=== PATIENT | male | born 1975 | race African-American/Black ===

== ENCOUNTER 2018-08-12 13:21 | Inpatient (IN) | payer OTHER ==
[~2018-08-12] VITALS: Ht 167.6 cm; Wt 69.4 kg
[2018-08-12 14:00] VITALS: BP 105/66
[2018-08-12 15:00] VITALS: BP 125/84
[2018-08-12 16:00] VITALS: BP 125/84
[2018-08-12] MEDS ORDERED: ACETAMINOPHEN ES 500 MG TABLET PO PRN (16:00)
[2018-08-12] MEDS ORDERED: IBUPROFEN 200 MG TABLET PO PRN (16:00)
--- NOTE | 2018-08-12 16:15 | NUR ---
MS RN ADMITTING NOTES RECEIVED PT AMBULATORY WITH 1 PERSON ASSIST/EMT. A/O X2-3. PT STATED CAME FROM HOME, ADMITTED BY DR PERALES. ORDERS PLACED AND MED LIST FAXED TO PHARMACY. NO IV ACCESS. PT FOR CLINICAL TRIAL, WITH DX OF SCHIZOPHRENIA AND ACUTE EXACERBATION OF PSYCHOSIS. LATVIAN SPEAKING. PT ABLE TO MAKE NEEDS KNOWN. PT HAS NO QUESTIONS AND CONCERNS AT THIS MOMENT. PT DENIES PAIN. TOLERATING RA, WITH NO ACUTE RESPIRATORY DISTRESS, O2 SATURATION OF 98%. PT'S BED KEPT IN LOWEST, LOCKED POSITION WITH SR X2. WILL CONTINUE PLAN OF CARE.
--- NOTE | 2018-08-12 16:20 | NUR ---
MS RN NOTES RN TO ASSESS SKIN. PT REFUSED AND CLAIMING HE HAS NO WOUNDS OR ANY SKIN ISSUES. EXPLAINED PER FACILITY PROTOCOL. PT STILL REFUSED. WILL ENDORSE TO INCOMING NURSE.
--- NOTE | 2018-08-12 19:28 | NUR ---
MS RN CLOSING NOTES PT RESTING IN BED, INTERMITTENTLY DOZING OFF. A/O X2-3. PT ABLE TO MAKE NEEDS KNOWN. PT DENIES PAIN. TOLERATING RA, WITH NO ACUTE RESPIRATORY DISTRESS, O2 SATURATION OF 98%. ALL NEEDS ATTENDED. PT'S BED KEPT IN LOWEST, LOCKED POSITION WITH SR X2. WILL ENDORSE TO ASSOCIATE DATA SCIENTIST NURSE.
[2018-08-12 20:00] VITALS: BP 108/65
--- NOTE | 2018-08-12 20:00 | NUR ---
RN NOTES PATIENT IN BED, ALERT AND ORIENTED X4, NO SOB, CALM, DENIES ANY HALLUCINATIONS, GOOD APPETITE. RECEIVED FROM PATIENT HOME MEDICATIONS, GIVEN TO PHARMACY. PATIENT IS USING HOME MEDS.
[2018-08-12] MEDS: SEROQUEL 50 MG PO SCH (21:08)
[2018-08-12 22:00] VITALS: BP 108/65
--- NOTE | 2018-08-13 06:22 | NUR ---
RN NOTES PATIENT IS ALERT AND ORIENTED, CLINICAL TRIAL, DENIES HALLUCINATIONS, SLEPT FOR 8 HOURS, CONTINUE HOME MEDS
--- NOTE | 2018-08-13 07:37 | NUR ---
MS RN OPENING NOTES RECEIVED PT LAYING IN BED RESTING COMFORTABLY. PT IS EASILY AROUSABLE. PT IS A/O X4, AFEBRILE. RESPIRATIONS ARE EVEN AND UNLABORED, NOT IN ANY ACUTE DISTRESS NOTED. PT DENIES ANY PAIN AT THIS TIME, NO C/O SOB, N/V. NO IV ACCESS. INSTRUCTED PT TO USE CALL LIGHT WHEN ASSISTANCE IS NEEDED, CALL LIGHT IS LEFT WITHIN REACH. WILL MONITOR THROUGHOUT SHIFT FOR CONTINUITY OF CARE.
[2018-08-13 08:00] VITALS: BP 115/52
[2018-08-13] MEDS: BENAZEPRIL 40 MG PO SCH (08:14)
[2018-08-13] MEDS: SEROQUEL 50 MG PO SCH ×2 (08:14→16:38)
[2018-08-13] MEDS: HCTZ PO SCH (08:14)
--- NOTE | 2018-08-13 13:31 | NUR ---
MS RN NOTES-- PT IS NOT IN ANY APPARENT DISTRESS NOTED. PT ABLE TO MAKE NEEDS KNOWN. NEEDS MET AND RENDERED. WILL CONTINUE TO MONITOR.
[2018-08-13 16:00] VITALS: BP 137/95
[2018-08-13] MEDS ORDERED: BACI/NEOM/POLY B OINT PKT 1 UDPKT PACKET TP SCH (17:00)
[2018-08-13] MEDS: NEOMY SULF/BACITRAC ZN/POLY 15 GM TUBE TP SCH (17:53)
--- NOTE | 2018-08-13 18:21 | NUR ---
MS RN CLOSING NOTES ALL DUE MEDS GIVEN, NEEDS MET AND RENDERED. PT IS A/O X4, AFEBRILE. RESPIRATIONS ARE EVEN AND UNLABORED, NOT IN ANY ACUTE DISTRESS NOTED. PT DENIES ANY PAIN, NO C/O SOB, N/V. NO IV ACCESS. SAFETY MEASURES ARE IN PLACE. REMINDED PT TO USE CALL LIGHT WHEN ASSISTANCE IS NEEDED, CALL LIGHT IS LEFT WITHIN REACH. WILL ENDORSE TO NEXT SHIFT FOR CONTINUITY OF CARE.
--- NOTE | 2018-08-13 19:52 | NUR ---
RN OPENING NOTES RECEIVED PATIENT AWAKE RESTING COMFORTABLY IN BED. PATIENT IS A/O X 4. NO SIGNS OF RESPIRATORY DISTRESS. DENIES SHORTNESS OF BREATH. PATIENT DENIES PAIN AT THIS TIME. PATIENT DENIES DISCOMFORT. SAFETY PRECAUTIONS IMPLEMENTED. CALL LIGHT WITHIN REACH. WILL CONTINUE TO MONITOR THROUGHOUT MY SHIFT.
[2018-08-13 20:00] VITALS: BP 117/83
--- NOTE | 2018-08-14 06:36 | NUR ---
RN CLOSING NOTES PATIENT IS RESTING COMFORTABLY IN BED. NO SIGNS OF RESPIRATORY DISTRESS. NO SIGNS OF SHORTNESS OF BREATH. PATIENT HAS NO SIGNS OF PAIN OR DISCOMFORT AT THIS TIME. CALL LIGHT WITHIN REACH. WILL ENDORSE TO AM NURSE.
[2018-08-14 08:00] VITALS: BP 106/82
--- NOTE | 2018-08-14 08:00 | NUR ---
RN NOTES RECEIVED PATIENT IN THE BED. PATIENT ON CLINICAL TRIAL, STABLE, V/S TAKEN HELD BP MEDICATION. PATIENT REFUSED PAIN, REFUSED HEARING VOICES TODAY, REFUSED SI/HI AT THIS TIME. PATIENT AMBULATORY SELF CARE. NEEDS ATTENDED AND ANTICIPATED, CALL LIGHT WITHIN TO REACH. SAFETY PRECAUTION MAINTAINED ALL THE TIME.
[2018-08-14] MEDS: HCTZ PO SCH (09:00)
[2018-08-14] MEDS: BENAZEPRIL 40 MG PO SCH (09:00)
[2018-08-14] MEDS: NEOMY SULF/BACITRAC ZN/POLY 15 GM TUBE TP SCH ×2 (09:44→16:53)
[2018-08-14] MEDS: SEROQUEL 50 MG PO SCH ×2 (09:44→16:53)
--- NOTE | 2018-08-14 13:00 | NUR ---
RN NOTES PATIENT STABLE LYING IN THE BED, SAFETY PRECAUTION MAINTAINED ALL THE TIME.
[2018-08-14 16:00] VITALS: BP 152/78
[2018-08-14 17:47] VITALS: BP 126/83
--- NOTE | 2018-08-14 18:45 | NUR ---
RN NOTES TRANSFERRED PATIENT 2 -ND FLOOR ROOM 206 BED B. PATIENT STABLE, NO ACUTE RESPIRATORY DISTRESS, PATIENT REFUSED PAIN, AND REFUSED HEARING VOICES AT THIS TIME, AND ANXIETY. SCHEDULED MEDICATION ADMINISTERED, V/S STABLE. PATIENT AMBULATORY SELF CARE. REPORT GIVEN ELADIO LOVE FOR PLAN OF CARE.
--- NOTE | 2018-08-14 19:00 | NUR ---
RN MS OPENING NOTES RECEIVED PATIENT IN BED, AWAKE ALERT AND ORIENTED X 4, RESPIRATIONS EVEN AND UNLABORED WITH EQUAL RISE AND FALL OF CHEST, NO SOB PRESENT, DENIES ANY PAIN OR DISCOMFORT, DENIES ANY FEELING OF ANXIETY OR HEARING VOICES, PATIENT IS CALM AT THIS TIME, ABLE TO MAKE NEEDS KNOWN. NO IV ACCESS MD AWARE PATIENT IS HERE UNDER CLINICAL TRIAL, ORIENTED TO STAFF, CALL LIGHT AND ROOM, FLUIDS OFFERED AND GIVEN, ALL NEEDS ATTENDED AT THIS TIME, REMAINS COMFORTABLE WILL CONTINUE TO MONITOR AND ATTEND TO NEEDS.
[2018-08-14 20:00] VITALS: BP 131/97
--- NOTE | 2018-08-15 06:42 | NUR ---
RN MS CLOSING NOTES PATIENT IN BED, AWAKE ALERT AND ORIENTED X 4, RESPIRATIONS EVEN AND UNLABORED WITH EQUAL RISE AND FALL OF CHEST, NO SOB PRESENT, DENIES ANY PAIN OR DISCOMFORT, DENIES ANY FEELING OF ANXIETY OR HEARING VOICES THROUGHOUT NIGHT, SLEPT WEL, PATIENT IS CALM AT THIS TIME, ABLE TO MAKE NEEDS KNOWN NO EPISODES OF ANXIETY. NO IV ACCESS MD AWARE PATIENT IS HERE UNDER CLINICAL TRIAL, CALL LIGHT KEPT WITHIN REACH, FLUIDS OFFERED AND GIVEN, ALL NEEDS ATTENDED AT THIS TIME, REMAINS COMFORTABLE WILL CONTINUE TO MONITOR AND ATTEND TO NEEDS AND ENDORSE TO NEXT SHIFT.
--- NOTE | 2018-08-15 07:18 | NUR ---
MS RN OPENING NOTES RECEIVED PATIENT AWAKE AND SITTING ON CHAIR BY BEDSIDE. A/O X4. ABLE TO MAKE NEEDS KNOWN, DENIES PAIN OR DISCOMFORTS AT THIS TIME. PT ON CLINICAL TRIAL. ON ROOM AIR, RESPIRATIONS EVEN AND UNLABORED. NO IV ACCESS NOTED. SAFETY MEASURES IN PLACE. BED IN LOW LOCKED POSITION. CALL LIGHT WITHIN REACH. WILL CONTINUE TO MONITOR AND ATTEND TO NEEDS.
[2018-08-15] MEDS: HCTZ PO SCH (08:05)
[2018-08-15] MEDS: BENAZEPRIL 40 MG PO SCH (08:05)
[2018-08-15] MEDS: NEOMY SULF/BACITRAC ZN/POLY 15 GM TUBE TP SCH ×2 (08:07→16:18)
[2018-08-15 08:08] VITALS: BP 125/77
[2018-08-15 16:00] VITALS: BP 120/76
--- NOTE | 2018-08-15 18:26 | NUR ---
MS RN CLOSING NOTES PATIENT AWAKE AND SITTING ON HIS BED AT THIS TIME. A/O X4. ABLE TO MAKE NEEDS KNOWN AND AMBULATORY. DENIES HI/SI THROUGHOUT THE DAY. PT ON CLINICAL TRIAL. ON ROOM AIR, RESPIRATIONS EVEN AND UNLABORED. NO IV ACCESS NOTED. ALL SAFETY MEASURES IN PLACE. BED IN LOW LOCKED POSITION. CALL LIGHT WITHIN REACH. ALL NEEDS AND CARE ATTENDED WELL. WILL ENDORSE TO KIESELGUHR REGENERATOR OPERATOR NURSE FOR NEYDA..
--- NOTE | 2018-08-15 19:30 | NUR ---
RN PM Open Note Assignment and report recieved. patient seen in room sitting in chair. in no apparent distress. admitted for schizophrenia (clinical trial). states he has a history of paranoid schizophrenia states " I havent had any sympotoms for quite a long time." patient reinforced that this is a safe place. patient denies any hallucinations at this time. poc reviewed. pt verbalized understanding and reinforced to call if he needs anything or assistance.
[2018-08-15 20:00] VITALS: BP 127/80
[2018-08-15] MEDS: SEROQUEL 50 MG PO SCH (21:09)
[2018-08-15] MEDS ORDERED: SEROQUEL 50 MG PO SCH (22:00)
--- NOTE | 2018-08-16 06:42 | NUR ---
RN PM CLOSING NOTE. PATIENT AWAKE AND SITTING ON HIS BED AT THIS TIME. A/O X4. ABLE TO MAKE NEEDS KNOWN AND AMBULATORY. PATIENT REPORTS HE FEELS WELL RESTED. PT ON CLINICAL TRIAL. ON ROOM AIR, RESPIRATIONS EVEN AND UNLABORED. NO IV ACCESS. BED DOWN AND LOCKED PATIENT HAS ACCESS TO CALL LIGHT. PATIENT HAS PLANNED EYE APPOINTMENT THIS AFTERNOON. WILL ENDORSE TO DAY SHIFT NURSE FOR NEYDA.
--- NOTE | 2018-08-16 07:07 | NUR ---
MS RN OPENING NOTES RECEIVED PT AWAKE IN BED WATCHING TV. A/O X4. ABLE TO MAKE NEEDS KNOWN, DENIES PAIN OR DISCOMFORTS AT THIS TIME. DENIES SI/HI. PT ON CLINICAL TRIAL. ON ROOM AIR, RESPIRATIONS EVEN AND UNLABORED. NO IV ACCESS NOTED. SAFETY MEASURES IN PLACE. BED IN LOW LOCKED POSITION. CALL LIGHT WITHIN REACH. WILL CONTINUE TO MONITOR AND ATTEND TO NEEDS
[2018-08-16 08:00] VITALS: BP 114/62
[2018-08-16] MEDS: BENAZEPRIL 40 MG PO SCH (08:57)
[2018-08-16] MEDS: NEOMY SULF/BACITRAC ZN/POLY 15 GM TUBE TP SCH ×2 (08:57→16:09)
[2018-08-16] MEDS: LORAZEPAM 1 MG TABLET FOR AGITATION PO PRN (08:59)
--- NOTE | 2018-08-16 09:00 | NUR ---
RN NOTES PATIENT NOTED ANXIOUS AND REQUESTED IF HE CAN HAVE SOMETHING TO RELAX HIM. PRN ATIVAN 1 MG TAB PO ADMINISTERED AT 0859. WILL CONTINUE TO MONITOR PT.
[2018-08-16] MEDS: HCTZ PO SCH (09:56)
--- NOTE | 2018-08-16 13:41 | NUR ---
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
--- NOTE | 2018-08-16 15:38 | NUR ---
RN NOTES PATIENT RETURNED TO UNIT FROM OPHTHALMOLOGY APPOINTMENT, AMBULATORY AND ACCOMPANIED BY MILLI FROM DR PERALES OFFICE.
[2018-08-16 16:00] VITALS: BP 117/80
--- NOTE | 2018-08-16 18:37 | NUR ---
MS RN CLOSING NOTES PATIENT IN BED AWAKE AND WATCHING TV. A/O X4. ABLE TO MAKE NEEDS KNOWN AND AMBULATORY. DENIES HI/SI THROUGHOUT THE DAY. ENCOURAGED TO TAKE BREAKS TO GO OUT WITH STAFF AND NOT TO ISOLATE HIMSELF IN THE ROOM, HE VERBALIZED UNDERSTANDING. ON ROOM AIR, RESPIRATIONS EVEN AND UNLABORED. ALL SAFETY MEASURES IN PLACE. BED IN LOW LOCKED POSITION. CALL LIGHT WITHIN REACH. ALL NEEDS AND CARE ATTENDED WELL. WILL ENDORSE TO CARDIOLOGY TECHNICIAN NURSE FOR NEYDA..
--- NOTE | 2018-08-16 19:30 | NUR ---
RECEIVED PT IN BED AWAKE AN ALERT. BREATHING EVENLY. NO SOB. NAD ,SKIN WARM AND DRY, NO BEHAVIORAL ISSUES NOTED. CALM AND QUIET. NEEDS ATTENDED. CALL LIGHT WITHIN REACH, WILL CONT TO MONITOR,
[2018-08-16 20:00] VITALS: BP 124/76
[2018-08-16] MEDS: SEROQUEL 50 MG PO SCH (21:57)
--- NOTE | 2018-08-17 06:00 | NUR ---
RN CLOSING NOTE PATIENT RECENTLY BATHED WITH AID, DRESSINGS CHANGED PATIENT REPOSITIONED. SXN X3 ROSA WHITE THICK LIQUID SECRETION SMALL AMOUNT. PATIENT ON VENT AND CONTINOUS POX HR OF 104 SPO2 OF 100%. ALARMS ARE ON AND AUDIBLE. PATIENT ALERT AND ORIENTED X4. MRI FORM REVIEWED WITH PATIENT AND SIGNED VERBALLY WITH 2 WITNESS RN. BED DOWN LOCKED DOOR LEFT OPEN FOR PATIENT TO MAKE CLICKING SOUNDS WITH TONGUE IF SHE NEEDS ASSISTANCE.
--- NOTE | 2018-08-17 07:30 | NUR ---
MS RN RECEIVED ON BED, AWAKE,ALERT,ORIENTED X4,NOT IN ANY FORM OF DISTRESS, RESPIRATIONS EVEN AND UNLABORED,NO SOB NOTED, CLINICAL TRIAL PATIENT, WILL MONITOR .
--- NOTE | 2018-08-17 07:54 | NUR ---
PT REMAINED STABLE WITH NO ACUTE EVENT DURING THE NIGHT. REPORT GIVEN TO ELADIO DOWNING FOR NEYDA.
[2018-08-17 08:00] VITALS: BP 113/71
--- NOTE | 2018-08-17 09:00 | NUR ---
MS HENDRICKS BREAKFAST SERVED,DUE MEDS GIVEN,TOLERATED WELL.
[2018-08-17] MEDS: BENAZEPRIL 40 MG PO SCH (09:19)
[2018-08-17] MEDS: HCTZ PO SCH (09:19)
[2018-08-17] MEDS: NEOMY SULF/BACITRAC ZN/POLY 15 GM TUBE TP SCH ×2 (09:23→18:03)
[2018-08-17 16:00] VITALS: BP 105/68
--- NOTE | 2018-08-17 17:00 | NUR ---
MS RN WAS SEEN BY DR. PERALES,ALL NEEDS ATTENDED.
[2018-08-17] MEDS: LORAZEPAM 1 MG TABLET FOR AGITATION PO PRN (18:08)
[2018-08-17 20:00] VITALS: BP 112/72
[2018-08-17] MEDS ORDERED: NICOTINE PATCH (7MG) 7 MG PATCH.TD24 TD ONE (21:30)
--- NOTE | 2018-08-17 21:32 | NUR ---
RN MS NOTES PATIENT REQUESTED FOR NICOTINE PATCH PER REPORT. CALLED AND SPOKE TO DR. PERALES. NEW ORDER VERIFIED AND READ BACH FOR NICOTINE PATCH X 1 ONE TIME ONLY 7MG PATIENT MADE AWARE, NICOTINE PATCH PLACED TO LEFT UPPER ARM.
[2018-08-18] MEDS: ZOLPIDEM TARTRATE 10 MG TABLET PO PRN ×2 (01:45→21:55)
--- NOTE | 2018-08-18 01:45 | NUR ---
RN MS NOTES PATIENT STATING AND REQUESTING " CAN I HAVE SOMETHING FOR SLEEP " AMBIEN OFFERED AGREED PRN AMBIEN GIVEN ORDERED, WILL CONTINUE TO MONITOR FOR EFFECTIVENESS.
--- NOTE | 2018-08-18 07:00 | NUR ---
RN MS CLOSING NOTES PATIENT AWAKE ALERT AND ORIENTED X4, RESPIRATIONS EVEN AND UNLABORED WITH EQUAL RISE AND FALL OF CHEST, DENIES ANY PAIN OR DISCOMFORT, PATIENT APPEARS TO BE CALM, NO EPISODE OF ANXIETY AT THIS TIME ,NO SI OR HI, NO HALLUCINATIONS AT THIS TIME, PATIENT IS PLEASANT, CALL LIGHT KEPT WITHIN REACH,SAFETY PRECAUTIONS IN PLACE, ALL NEEDS ATTENDED AT THIS TIME WILL CONTINUE TO MONITOR AND ATTEND TO NEEDS.REMAINS CALM AND COMFORTABLE AT THIS TIME WILL ENDORSE TO NEXT SHIFT, PATIENT THROUGHOUT SHIFT NOTED WITH PERIODS OF LAYING AND BEING UP THROUGHOUT THE NIGHT, DESPITE AMBIEN GIVEN AND DIM LIGHTS AND DECREASED DISTRACTIONS.
--- NOTE | 2018-08-18 07:18 | NUR ---
RN NOTES STATES HAD 6 HOURS OF SLEEP
[2018-08-18 08:00] VITALS: BP 118/85
--- NOTE | 2018-08-18 08:00 | NUR ---
MS RN RECEIVED ON BED, AWAKE,ALERT,ORIENTED X4,NOT IN ANY FORM OF DISTRESS, RESPIRATION EVEN AND UNLABORED,NO SOB NOTED, LUNGS ARE CLEAR,ABDOMEN SOFT POSITIVE BOWEL SOUNDS, DENIES PAIN AT THIS TIME,ALL NEEDS ATTENDED.
[2018-08-18] MEDS: HCTZ PO SCH (08:50)
[2018-08-18] MEDS: BENAZEPRIL 40 MG PO SCH (08:50)
[2018-08-18] MEDS: NEOMY SULF/BACITRAC ZN/POLY 15 GM TUBE TP SCH ×2 (08:53→18:23)
--- NOTE | 2018-08-18 09:30 | NUR ---
MS HENDRICKS BREAKFAST SERVED,DUE MEDS GIVEN,TOLERATED WELL.
[2018-08-18] MEDS: MAG HYDROX/AL HYDROX/SIMETH 30 ML UDC PO PRN (12:05)
--- NOTE | 2018-08-18 15:46 | NUR ---
MS RN INSIDE ROOM,NO DISTRESS NOTED.
[2018-08-18 16:00] VITALS: BP 130/70
--- NOTE | 2018-08-18 19:00 | NUR ---
RN MS OPENING NOTES RECEIVED PATIENT SITTING IN CHAIR AWAKE ALERT AND ORIENTED X4, RESPIRATIONS EVEN AND UNLABORED WITH EQUAL RISE AND FALL OF CHEST, DENIES ANY PAIN OR DISCOMFORT, PATIENT APPEARS TO BE CALM, NO EPISODE OF ANXIETY AT THIS TIME ,NO SI OR HI, NO HALLUCINATIONS AT THIS TIME, PATIENT IS PLEASANT, ORIENTED TO STAFF AND CALL LIGHT AND KEPT WITHIN REACH,SAFETY PRECAUTIONS IN PLACE, ALL NEEDS ATTENDED AT THIS TIME WILL CONTINUE TO MONITOR AND ATTEND TO NEEDS.REMAINS CALM AND COMFORTABLE AT THIS TIME. NO IV ACCESS MD AWARE.
[2018-08-18 20:00] VITALS: BP 109/73
[2018-08-18 20:29] VITALS: BP 109/73
--- NOTE | 2018-08-18 21:55 | NUR ---
RN MS NOTES PATIENT REQUESTING FOR SLEEP MEDICATION, YANIRA OFFERED AND GIVEN WILL CONTINUE TO MONITOR FOR EFFECTIVENESS.
--- NOTE | 2018-08-19 06:31 | NUR ---
RN MS CLOSING NOTES PATIENT AWAKE ALERT AND ORIENTED X4, RESPIRATIONS EVEN AND UNLABORED WITH EQUAL RISE AND FALL OF CHEST, DENIES ANY PAIN OR DISCOMFORT, PATIENT APPEARS TO BE CALM, NO EPISODE OF ANXIETY AT THIS TIME ,NO SI OR HI, NO HALLUCINATIONS AT THIS TIME, PATIENT IS PLEASANT, CALL LIGHT KEPT WITHIN REACH,SAFETY PRECAUTIONS IN PLACE, ALL NEEDS ATTENDED AT THIS TIME WILL CONTINUE TO MONITOR AND ATTEND TO NEEDS.REMAINS CALM AND COMFORTABLE AT THIS TIME. NO IV ACCESS MD AWARE. SLEPT FOR ABOUT 5-6 HOURS. ALL NEEDS ATTENDED WILL ENDORSE TO NEXT SHIFT.
--- NOTE | 2018-08-19 07:20 | NUR ---
MS RN OPENING NOTE RECEIVED PT IN CHAIR, ALERT AND ORIENTED X4. DENIES CHEST PAIN, SOB, N/V, BREATHING IS EVEN AND UNLABORED ON ROOM AIR. NO ACUTE DISTRESS NOTED AT THIS TIME. PT IS A CLINICAL TRIAL PATIENT FOR DR. PERALES AND HAS NO IV ACCESS PER PROTOCOL. ALL NEEDS ATTENDED TO. BED IS LOCKED AND IN LOWEST POSITION, SIDE RAILS UP X2, CALL LIGHT AND POSSESSIONS WITHIN REACH.
[2018-08-19 08:00] VITALS: BP 121/78
[2018-08-19] MEDS: NEOMY SULF/BACITRAC ZN/POLY 15 GM TUBE TP SCH ×2 (08:29→16:45)
[2018-08-19] MEDS: HCTZ PO SCH (08:29)
[2018-08-19] MEDS: BENAZEPRIL 40 MG PO SCH (08:29)
--- NOTE | 2018-08-19 08:29 | NUR ---
MS RN NOTE PT REQUESTING "SOMETHING FOR ANXIETY" AT THIS TIME. INFORMED PT THAT PER CLINICAL TRIAL PROTOCOL, NO ATIVAN CAN BE ADMINISTERED UNTIL AFTER 1200 TODAY. PT VERBALIZED AGREEMENT AND UNDERSTANDING. DISCUSSED DEEP BREATHING AND STRESS RELIVING TECHNIQUES, PT VERBALIZED UNDERSTANDING. NO BEHAVIORAL EPISODES AT THIS TIME.
--- NOTE | 2018-08-19 09:45 | NUR ---
MS RN NOTE PT OFF UNIT WITH DOMINIQUE FROM DR[facility].
--- NOTE | 2018-08-19 11:11 | NUR ---
MS RN NOTE PT BACK ON UNIT.
[2018-08-19] MEDS: LORAZEPAM 1 MG TABLET FOR AGITATION PO PRN (13:15)
[2018-08-19 16:00] VITALS: BP 106/73
[2018-08-19] MEDS: INVESTIGATIONAL MED RGH-MD-24 1 CAP PO SCH (16:45)
--- NOTE | 2018-08-19 18:08 | NUR ---
MS RN CLOSING NOTE PT SITTING UP IN CHAIR, ALERT AND ORIENTED X4. DENIES CHEST PAIN, SOB, N/V, BREATHING IS EVEN AND UNLABORED ON ROOM AIR. NO ACUTE DISTRESS NOTED AT THIS TIME. PT IS A CLINICAL TRIAL PATIENT FOR DR. PERALES AND HAS NO IV ACCESS PER PROTOCOL. NO BEHAVIORAL ISSUES, DENIES SI AND AUDITORY OR VISUAL HALLUCINATIONS FOR THE DURATION OF THE SHIFT. ALL NEEDS ATTENDED TO. BED IS LOCKED AND IN LOWEST POSITION, SIDE RAILS UP X2, CALL LIGHT AND POSSESSIONS WITHIN REACH. WILL ENDORSE TO SEISMOGRAPH OBSERVER NURSE FOR CONTINUITY OF CARE.
--- NOTE | 2018-08-19 19:00 | NUR ---
MS RN NOTE RECEIVED PT IN STABLE CONDITION, A&O X4, ABLE TO MAKE NEEDS KNOWN. CURRENTLY RESTING IN BED, EASILY AROUSABLE WHEN NAME IS CALLED, NO SIGNS OF SOB OR DISTRESS, NO C/O PAIN. ALL CURRENT NEEDS MET. SAFETY PRECAUTIONS IN PLACE: BED LOW, LOCKED, UPPER RAILS UP, AND CALL LIGHT WITHIN REACH. WILL CONT. TO MONITOR.
[2018-08-19 20:25] VITALS: BP 103/80
[2018-08-19 20:27] VITALS: BP 103/80
--- NOTE | 2018-08-20 06:18 | NUR ---
MS RN NOTE PT IN STABLE CONDITION, A&O X4, ABLE TO MAKE NEEDS KNOWN. CURRENTLY RESTING IN BED, EASILY AROUSABLE WHEN NAME IS CALLED, NO SIGNS OF SOB OR DISTRESS, NO C/O PAIN. ALL CURRENT NEEDS MET. SAFETY PRECAUTIONS IN PLACE: BED LOW, LOCKED, UPPER RAILS UP, AND CALL LIGHT WITHIN REACH. WILL CONT. TO MONITOR AND ENDORSE TO NEXT SHIFT FOR NEYDA.
--- NOTE | 2018-08-20 07:10 | NUR ---
MS/RN OPENING NOTE THE PATIENT ALERT AND ORIENTED X4. DENIES SOB. DENIES SI/HI. IN ROOM AIR AND RESPIRATION REGULAR AND UNLABORED. PATIENT IN NO APPARENT DISTRESS. BED LOW AND LOCKED. SIDE RAILS UP X2. CALL LIGHT WITHIN REACH. WILL CONTINUE TO MONITOR.
[2018-08-20 08:00] VITALS: BP 103/71
[2018-08-20] MEDS: HCTZ PO SCH (08:29)
[2018-08-20] MEDS: BENAZEPRIL 40 MG PO SCH (08:29)
[2018-08-20] MEDS: NEOMY SULF/BACITRAC ZN/POLY 15 GM TUBE TP SCH ×2 (08:30→17:00)
[2018-08-20 16:00] VITALS: BP 135/64
[2018-08-20] MEDS: MAG HYDROX/AL HYDROX/SIMETH 30 ML UDC PO PRN (16:42)
[2018-08-20] MEDS: INVESTIGATIONAL MED RGH-MD-24 1 CAP PO SCH (17:23)
--- NOTE | 2018-08-20 18:18 | NUR ---
MS/RN NOTE THE PATIENT ALERT AND ORIENTED X4. IN ROOM AIR AND SATURATION IS AT 98%. DENIES SOB. RESPIRATION REGULAR AND UNLABORED. DENIES PAIN. THE PATIENT IN NO APPARENT DISTRESS. DENIES SI/HI. ALL NEEDS ATTENDED. BED LOW AND LOCKED. SIDE RAILS UP X2. CALL LIGHT WITHIN REACH. WILL ENDORSE TO STOCK REPLENISHER.
--- NOTE | 2018-08-20 19:50 | NUR ---
MS RN NOTES RECEIVED PATIENT ALERT AND ORIENTED X4. ON ROOM AIR AND SATURATION IS AT 98%. DENIES SOB. RESPIRATION REGULAR AND UNLABORED. DENIES PAIN. THE PATIENT IN NO APPARENT DISTRESS. ALL NEEDS ATTENDED. SAFETY MEASURES IN PLACED, BED LOW AND LOCKED. SIDE RAILS UP X2. CALL LIGHT WITHIN REACH. WILL MONITOR ACCORDINGLY.
[2018-08-20 20:00] VITALS: BP_SYST 130; BP_DIAS 82; BP_DIAS 87
--- NOTE | 2018-08-21 07:08 | NUR ---
MS RN NOTES ALL NEEDS ATTENDED, ABLE TO REST AND SLEEP COMFORTABLY, NO COMPLAINTS OF PAIN OR DISCOMFORT, SAFETY MEASURES IN PLACE, WILL ENDORSE TO AM NURSE FOR CONTINUITY OF CARE.
[2018-08-21 08:00] VITALS: BP 113/71
--- NOTE | 2018-08-21 08:00 | NUR ---
MS RN OPENING NOTES: RECEIVED PATIENT AWAKE, SITTING IN THE CHAIR, DENIES SI/HI,NO HALLUCINATIONS NOTED, NOT IN RESPIRATORY DISTRESS, NOT COMPLAINING OF PAIN AT THIS TIME. V/S TAKEN AND STABLE. AMBULATORY, SELF CARE. WILL CONTINUE TO MONITOR FOR SAFETY.
[2018-08-21] MEDS: BENAZEPRIL 40 MG PO SCH (08:10)
[2018-08-21] MEDS: NEOMY SULF/BACITRAC ZN/POLY 15 GM TUBE TP SCH ×2 (08:11→16:51)
[2018-08-21 09:54] VITALS: BP 106/70
[2018-08-21] MEDS: HCTZ PO SCH (09:55)
[2018-08-21] MEDS: MAG HYDROX/AL HYDROX/SIMETH 30 ML UDC PO PRN (14:07)
[2018-08-21] MEDS: LORAZEPAM 1 MG TABLET FOR AGITATION PO PRN (14:07)
[2018-08-21] MEDS: MAGNESIUM HYDROXIDE 30 ML UDC PO PRN (14:09)
--- NOTE | 2018-08-21 14:14 | NUR ---
PATIENT COMPLAINED OF ANXIETY, MEDICATED WITH ATIVAN 1MG PO. COMPLAINED OF STOMACH UPSET MEDICATED WITH PRN MED. COMPLAINED OF CONSTIPATION, MEDICATED WITH PRN MED.
[2018-08-21] MEDS: INVESTIGATIONAL MED RGH-MD-24 1 CAP PO SCH (16:50)
--- NOTE | 2018-08-21 18:19 | NUR ---
MS RN NOTES: PATIENT IS RESTING COMFORTABLY IN THE CHAIR. HAD ATIVAN FOR ANXIETY AT 1400. COMPLAINED OF CONSTIPATION AND STOMACH UPSET AT 1400, MEDICATED WITH PRN MEDS ACCORDINGLY, STOMACH UPSET RELIEVED, BUT NO BM YET. RESPIRATORY STATUS STABLE. AFEBRILE. NO ACUTE EVENTS DURING THE SHIFT.
--- NOTE | 2018-08-21 19:40 | NUR ---
MS RN OPENING NOTES: RECEIVED PT ON ROOM AIR AND IS TOLERATING WELL. NO SOB NOTED. NO S/S OF DISTRESS. PT RESTING IN BED COMFORTABLY AND WOULD LIKE TO GO OUTSIDE FOR SOME AIR. PT A/OX4. NO IV NOTED ON PT. BED KEPT IN LOW, LOCKED POSITION, AND SIDE RAILS X 2UP. WILL CONTINUE TO MONITOR PT.
[2018-08-21 20:00] VITALS: BP 119/84
--- NOTE | 2018-08-21 21:07 | NUR ---
MS RN NOTES: PT WENT DOWNSTAIRS WITH TIE MAN, IMMACULATE, FOR SOME AIR.
[2018-08-22] MEDS: LORAZEPAM 1 MG TABLET FOR AGITATION PO PRN (03:19)
--- NOTE | 2018-08-22 03:23 | NUR ---
MS RN NOTES: FOUND PT AWAKE IN BED AND FEELING A BIT AGITATED AND ANXIOUS. PT WAS ADMINISTERED ATIVAN 1MG PO. WILL CONTINUE TO MONITOR.
--- NOTE | 2018-08-22 06:23 | NUR ---
MS HENDRICKS CLOSING NOTES: ALL NEEDS WERE ATTENDED AND ANTICIPATED FOR. PT KEPT CLEAN, DRY, AND COMFORTABLE. PT ON ROOM AIR AND TOLERATING WELL. NO SOB NOTED. NO S/S OF DISTRESS. PT HAS NO IV ORDERED. BED KEPT IN LOW, LOCKED POSITION, AND SIDE RAILS X 2UP. WILL ENDORSE TO AM NURSE FOR NEYDA. Addendum: 08/22/18 at 0724 by CHELY DAMON RN PT VERBALIZED HE GOT ABOUT 5 HOURS OF SLEEP.
[2018-08-22 08:00] VITALS: BP 145/86
[2018-08-22] MEDS: BENAZEPRIL 40 MG PO SCH (08:24)
[2018-08-22] MEDS: NEOMY SULF/BACITRAC ZN/POLY 15 GM TUBE TP SCH ×2 (08:25→16:25)
[2018-08-22] MEDS: HCTZ PO SCH (08:26)
--- NOTE | 2018-08-22 13:31 | NUR ---
MS RN NOTES-- PT IS NOT IN ANY APPARENT DISTRESS NOTED. PT ABLE TO MAKE NEEDS KNOWN. NEEDS MET AND RENDERED. WILL CONTINUE TO MONITOR.
[2018-08-22 16:00] VITALS: BP 112/67
[2018-08-22] MEDS: INVESTIGATIONAL MED RGH-MD-24 1 CAP PO SCH (16:24)
--- NOTE | 2018-08-22 19:30 | NUR ---
RN INITIAL NOTES: Received report from Birgit HENDRICKS. Pt in bed, awake, a/o x4, on ra respiration even and unlabored, denies any pain or discomfort at this time. Pt denies any plans of hurting himself, denies si/hi. Pt claimed he sleep longer due to the said investigational medication, denies any other side effects. Pt requested to get sleeping pill by 2200. Safety precautions for fall initiated, call light in reach, will continue monitoring pt.
[2018-08-22 20:00] VITALS: BP 111/77
[2018-08-22 20:43] VITALS: BP 111/77
[2018-08-22] MEDS: ZOLPIDEM TARTRATE 10 MG TABLET PO PRN (22:05)
--- NOTE | 2018-08-22 22:06 | NUR ---
prn ambien: pt requested for sleeping pill, prn ambien administered at this time, will continue to monitor and reassess pt
--- NOTE | 2018-08-23 06:56 | NUR ---
rn closing notes: pt in bed, cooperative, Calm and remains withdrawn, denies any si/hi. total hours of sleep is 5hrs, with help of ambien. no adverse reaction noted. no untoward behavior noted throughout the shift. vs remains stable. needs attended. safety precautions for fall remains engaged, call light in reach, will endorse to day rn for continuity of care.
--- NOTE | 2018-08-23 07:40 | NUR ---
MS RN OPENING NOTES RECEIVED PT SITTING UP IN CHAIR. PT IS A/O X4, AFEBRILE. RESPIRATIONS ARE EVEN AND UNLABORED, NOT IN ANY ACUTE DISTRESS NOTED. PT DENIES ANY PAIN AT THIS TIME, NO C/O SOB, N/V. NO IV ACCESS. PER PT, HE GOT 5 HOURS OF SLEEP LAST NIGHT. INSTRUCTED PT TO USE CALL LIGHT WHEN ASSISTANCE IS NEEDED, CALL LIGHT IS LEFT WITHIN REACH. WILL MONITOR THROUGHOUT SHIFT FOR CONTINUITY OF CARE.
[2018-08-23 08:00] VITALS: BP 113/78
[2018-08-23 08:06] VITALS: BP 113/78
[2018-08-23] MEDS: BENAZEPRIL 40 MG PO SCH (08:39)
[2018-08-23] MEDS: MAGNESIUM HYDROXIDE 30 ML UDC PO PRN (08:39)
[2018-08-23] MEDS: HCTZ PO SCH (08:39)
[2018-08-23] MEDS: NEOMY SULF/BACITRAC ZN/POLY 15 GM TUBE TP SCH ×2 (08:41→16:11)
[2018-08-23] MEDS: LORAZEPAM 1 MG TABLET FOR AGITATION PO PRN (15:32)
[2018-08-23 15:57] VITALS: BP 108/71
[2018-08-23] MEDS: INVESTIGATIONAL MED RGH-MD-24 1 CAP PO SCH (16:11)
--- NOTE | 2018-08-23 17:25 | NUR ---
MS RN NOTES-- PT SEEN AND EXAMINED BY DR. PERALES.
--- NOTE | 2018-08-23 19:45 | NUR ---
RN OPENING NOTES RECEIVED REPORT FROM DAYSHIFT RN. FOUND Pt AWAKE, WALKING AROUND THE UNIT. RESPIRATIONS EVEN AND UNLABORED. NO S/S OF ACUTE DISTRESS OR SOB NOTED. Pt IS A/OX4, VERBAL, ABLE TO MAKE NEEDS KNOWN. NO IV ACCESS DUE TO CLINICAL TRIAL. WILL TRANSFER Pt TO MS2 LATER ON TO ROOM 208. SAFETY MEASURES IN PLACE. WILL CONTINUE TO MONITOR Pt's CONDITION AND SAFETY THROUGHOUT THE NIGHT.
[2018-08-23 20:00] VITALS: BP 123/86
--- NOTE | 2018-08-24 06:55 | NUR ---
RN CLOSING NOTES NO SIGNIFICANT CHANGES IN Pt's CONDITION. Pt REMAINS STABLE AT THIS TIME. NO S/S OF ACUTE DISTRESS OR SOB NOTED DURING THE NIGHT. ALL NEEDS MET AND ATTENDED TO. Pt IS RESTING COMFORTABLY IN BED. RESPIRATIONS EVEN AND UNLABORED. SAFETY MEASURES IN PLACE. WILL ENDORSE TO DAYSHIFT RN FOR Pt's NEYDA.
[2018-08-24 08:00] VITALS: BP 115/73
--- NOTE | 2018-08-24 08:08 | NUR ---
RN OPENING NOTES PT AWAKE AND SITTING AT BEDSIDE. NO COMPLAINTS OF PAIN, SOB OR DISTRESS AT THIS TIME. PT CLINICAL TRIAL, NO IV ACCESS. SAFETY PRECAUTIONS IN PLACE, BED IN LOWEST LOCKED POSITION, X2 SIDE RAILS UP AND CALL LIGHT WITHIN REACH. WILL CONTINUE TO MONITOR.
[2018-08-24] MEDS: HCTZ PO SCH (09:05)
[2018-08-24] MEDS: BENAZEPRIL 40 MG PO SCH (09:05)
[2018-08-24] MEDS: NEOMY SULF/BACITRAC ZN/POLY 15 GM TUBE TP SCH ×2 (09:05→16:37)
--- NOTE | 2018-08-24 10:54 | NUR ---
RN NOTES SECOND PHONE CALL. INFORMED PHARMACY OF MISSING MEDICATIONS. PER PHARMACY, WILL RESTOCK. WILL CONTINUE TO FOLLOW UP.
--- NOTE | 2018-08-24 14:39 | NUR ---
RN NOTES ALL MEDICATIONS GIVEN THEY WERE MADE AVAILABLE FROM PHARMACY.
[2018-08-24 16:00] VITALS: BP 116/68
[2018-08-24] MEDS: INVESTIGATIONAL MED RGH-MD-24 1 CAP PO SCH (16:37)
--- NOTE | 2018-08-24 18:47 | NUR ---
RN CLOSING NOTES PT AWAKE AND SITTING AT BEDSIDE. NO COMPLAINTS OF PAIN, SOB OR DISTRESS DURING SHIFT. PT CLINICAL TRIAL, NO IV ACCESS. SAFETY PRECAUTIONS IN PLACE, BED IN LOWEST LOCKED POSITION, X2 SIDE RAILS UP AND CALL LIGHT WITHIN REACH. WILL ENDORSE TO VP CUSTOMER DEVELOPMENT NURSE FOR CONTINUITY OF CARE.
[2018-08-24 20:00] VITALS: BP 110/67
[2018-08-24 20:25] VITALS: BP 110/67
[2018-08-24] MEDS: ZOLPIDEM TARTRATE 10 MG TABLET PO PRN (23:35)
--- NOTE | 2018-08-25 06:10 | NUR ---
SLEPT 7 HOURS OF THIS 12 HOUR SHIFT. HE IS QUIET AND SOFT SPOKEN. POLITE TO THE NURSES. REMINDED TO CALL FOR WHAT HE NEEDS. [facility] SERVED HIM PER HIS REQUEST BEFORE GOING TO SLEEP LAST NIGHT. DIDN'T WONDER FAR FROM HIS ROOM.
[2018-08-25 08:00] VITALS: BP_SYST 130; BP_SYST 132; BP_DIAS 68; BP_DIAS 80
[2018-08-25] MEDS: NEOMY SULF/BACITRAC ZN/POLY 15 GM TUBE TP SCH ×2 (09:00→17:00)
[2018-08-25] MEDS: HCTZ PO SCH (10:02)
[2018-08-25] MEDS: BENAZEPRIL 40 MG PO SCH (10:02)
[2018-08-25 16:00] VITALS: BP 130/76
[2018-08-25] MEDS: INVESTIGATIONAL MED RGH-MD-24 1 CAP PO SCH (16:16)
--- NOTE | 2018-08-25 19:30 | NUR ---
CHANGE OF SHIFT REPORT Patient is awake, up sitting in the chair. A/O x4, stable oxygen saturation on RA. Denies pain , appears calm. On study medication under Dr. Garber. Call light within reach, safety measure explained, verbalized understanding.
[2018-08-25 20:32] VITALS: BP 110/84
[2018-08-26] MEDS: LORAZEPAM 1 MG TABLET FOR AGITATION PO PRN (03:54)
--- NOTE | 2018-08-26 06:36 | NUR ---
END OF SHIFT REPORT Patient in bed, slept well. On Study medication/Clinical Trial. Anxiety relieved with PRN Ativan x1, stable oxygen saturation on RA, denies pain. Call light within reach, safety measure explained, verbalized understanding.
--- NOTE | 2018-08-26 07:30 | NUR ---
MS RN OPENING NOTES RECEIVED PATIENT STANDING IN HIS ROOM WATCHING TV. A/O X4. ABLE TO MAKE NEEDS KNOWN, DENIES PAIN OR DISCOMFORTS AT THIS TIME. DENIES SI/HI. PT ON CLINICAL TRIAL. ON ROOM AIR, RESPIRATIONS EVEN AND UNLABORED. NO IV ACCESS NOTED. SAFETY MEASURES IN PLACE. BED IN LOW LOCKED POSITION. CALL LIGHT WITHIN REACH. WILL CONTINUE TO MONITOR.
[2018-08-26 08:00] VITALS: BP 119/76
[2018-08-26] MEDS: HCTZ PO SCH (08:23)
[2018-08-26] MEDS: BENAZEPRIL 40 MG PO SCH (08:24)
[2018-08-26] MEDS: NEOMY SULF/BACITRAC ZN/POLY 15 GM TUBE TP SCH (08:24)
--- NOTE | 2018-08-26 10:23 | NUR ---
RN NOTES RECEIVED CALL FROM DR PERALES WITH ORDER TO PUT D/C ORDER FOR PT AND TO GO TO HIS OFFICE POST DISCHARGE FROM HOSPITAL TO BE ACCOMPANIED BY ONE OF HIS STAFF.
--- NOTE | 2018-08-26 13:13 | NUR ---
DIRECTOR OF USER EXPERIENCE NOTES PATIENT DISCHARGED HOME IN STABLE CONDITION. A/O X4. ABLE TO MAKE NEEDS KNOWN, NO C/O PAIN OR ACUTE DISTRESS VOICED. ALL NEEDS AND CARE ATTENDED WELL. V/S TAKEN AND RECORDED. NO SKIN ISSUES NOTED. ALL BELONGINGS ACCOUNTED FOR AND SIGNED FORM. HOME MEDS HANDED TO PATIENT. HEALTH TEACHINGS/DISCHARGED INSTRUCTION GIVEN AND PT VERBALIZED UNDERSTANDING. PT LEFT UNIT AMBULATORY ENROUTE TO DR PERALES OFFICE ACCOMPANIED BY MADHURI (STAFF OF DR PERALES) AT 1215.
== END 2018-08-26 12:15 | disposition home or self-care (01) | DRG 951 ==
LOC: MED 14:13 → MEDSG2 08-14 18:40 → MED 08-15 16:14 → MEDSG2 08-23 20:11
PROVIDERS: ADMIT Psychiatry & Neurology Psychiatry; ATTEND Psychiatry & Neurology Psychiatry
DX: Z00.6 Encounter for examination for normal comparison and control in clinical research program (principal); F20.0 Paranoid schizophrenia; Z87.891 Personal history of nicotine dependence
CPT/HCPCS: 87081-TC; G0378

== ENCOUNTER 2019-08-15 10:59 | Inpatient (IN) | payer OTHER ==
[~2019-08-15] VITALS: Ht 170.2 cm; Wt 74.8 kg
[2019-08-15 00:25] VITALS: BP 123/78
[2019-08-15 15:00] VITALS: BP 131/84
--- NOTE | 2019-08-15 15:00 | NUR ---
ANTIQUE CLOCK REPAIRER NOTES RECEIVED PT IN UNIT. PT IS AMBULATORY. AOX4. PT IS HERE IN UNIT FOR CLINICAL TRIAL. NO CARDIAC OR RESP DISTRESS NOTED. PER PT, MEDICAL HX INCLUDES HYPERTENSION, SCHIZOPHRENIA AND MOOD D/O, WHICH HE STATES THAT HE TAKES HIS MEDS FOR. PT IS CONTINENT OF B/B. SKIN INTACT. PT IS A SMOKER. ALL SMOKING MATERIALS PLACED IN THE NURSES STATION. ORIENTED PT TO HIS ROOM, UNIT, CALL LIGHT AND FACILITIES SMOKING POLICIES AND RULES. PT AGREED. PT IS VERY PLEASANT. ON REGULAR DIET. VS CHECKED, NOTED AT T-98.2, P-98, RR-20, BP-131/87, O2 SAT-95% ON ROOM AIR. WILL CONT TO MONITOR.
[2019-08-15] MEDS ORDERED: BENZTROPINE MESYLATE (1 MG) 1 MG TABLET PO PRN (15:30)
[2019-08-15] MEDS ORDERED: PROPRANOLOL HCL 10 MG TABLET PO PRN (15:30)
[2019-08-15] MEDS ORDERED: IBUPROFEN 200 MG TABLET PO PRN (15:30)
[2019-08-15] MEDS ORDERED: MAGNESIUM HYDROXIDE 30 ML UDC PO PRN (15:30)
[2019-08-15] MEDS ORDERED: MAG HYDROX/AL HYDROX/SIMETH 30 ML UDC PO PRN (15:30)
[2019-08-15 16:00] VITALS: BP 131/87
[2019-08-15] MEDS: HYDROCHLOROTHIAZIDE 50 MG PO SCH (17:20)
[2019-08-15] MEDS: BENAZEPRIL 40 MG PO SCH (17:20)
--- NOTE | 2019-08-15 18:19 | NUR ---
MS RN CLOSING NOTES PT IN BED. AOX4. NO CARDIAC OR RESP DISTRESS NOTED. NO COMPLAINTS OF PAIN/ DISCOMFORT. NO BEHAVIORAL ISSUES NOTED. PT IS VERY PLEASANT TOWARD STAFF. ADMINISTERED ALL DUE MEDS THIS SHIFT. TOLERATED WELL WITH NO ASE NOTED. WILL RNDORSE TO NEXT SHIFT.
--- NOTE | 2019-08-15 19:38 | NUR ---
RN NOTES RECEIVED PATIENT AWAKE SITTING IN HIS BED, CALM RESTING COMFORTABLY, NO SIGNS OF ACUTE DISTRESS NOTED, SAFETY MEASURES IN PLACE, BED IN LOW LOCKED POSITION, CALL LIGHT WITHIN EASY REACH, PATIENT IS HERE FOR CLINICAL TRIAL. ALL NEEDS ATTENDED, DENIES ANY PAIN OR DISCOMFORT AT THIS TIME. WILL CONTINUE TO MONITOR ACCORDINGLY.
[2019-08-15 20:38] VITALS: BP 137/91
[2019-08-15 20:45] VITALS: BP 137/91
--- NOTE | 2019-08-16 07:11 | NUR ---
RN NOTES ALL NEEDS ATTENDED AND MET. PATIENT AWAKE LYING IN HIS BED, CALM RESTING COMFORTABLY, NO SIGNS OF ACUTE DISTRESS NOTED, SAFETY MEASURES IN PLACE, BED IN LOW LOCKED POSITION, CALL LIGHT WITHIN EASY REACH, PATIENT IS HERE FOR CLINICAL TRIAL. ALL NEEDS ATTENDED, DENIES ANY PAIN OR DISCOMFORT AT THIS TIME. WILL ENDORSE TO AM NURSE FOR CONTINUITY OF CARE.
[2019-08-16 08:00] VITALS: BP 121/82
--- NOTE | 2019-08-16 08:00 | NUR ---
MS RN OPENING NOTES RECEIVED PT IN BED. AOX4. NO CARDIAC OR RESP DISTRESS NOTED. NO COMPLAINTS OF PAIN/ DISCOMFORT. NO BEHAVIORAL ISSUES NOTED. PT IS VERY PLEASANT TOWARD STAFF. SAFETY PRECAUTIONS IN PLACE. BED LOCKED AND IN LOW POSITION. SIDE RAILS UP. CALL LIGHT WITHIN REACH. WILL CONT TO MONITOR.
[2019-08-16] MEDS: QUETIAPINE 50 MG PO SCH ×3 (08:23→16:20)
[2019-08-16] MEDS: HYDROCHLOROTHIAZIDE 50 MG PO SCH (08:23)
[2019-08-16] MEDS: BENAZEPRIL 40 MG PO SCH (08:23)
[2019-08-16] MEDS ORDERED: QUET150T2 PO (10:42)
[2019-08-16] MEDS ORDERED: HYDR50TA3 PO (10:42)
[2019-08-16] MEDS ORDERED: EMTR1TAB18 PO (10:42)
[2019-08-16] MEDS ORDERED: HYDR50TA61 PO (10:42)
[2019-08-16] MEDS ORDERED: BENA40TA8 PO (10:42)
[2019-08-16] MEDS ORDERED: FLUO20CA42 PO (10:42)
[2019-08-16 16:00] VITALS: BP 125/88
--- NOTE | 2019-08-16 18:18 | NUR ---
MS RN CLOSING NOTES PT IN BED. AOX4. NO CARDIAC OR RESP DISTRESS NOTED. NO COMPLAINTS OF PAIN/ DISCOMFORT. NO BEHAVIORAL ISSUES NOTED. PT IS VERY PLEASANT TOWARD STAFF. HE STATES THAT HE'S BORED. I TOLD PT, TO TRY TO WALK AROUND THE UNIT AND SOCIALIZE WITH STAFF. PT AGREED. SAFETY PRECAUTIONS IN PLACE. BED LOCKED AND IN LOW POSITION. SIDE RAILS UP. CALL LIGHT WITHIN REACH. WILL CONT TO MONITOR.
[2019-08-16 19:30] VITALS: BP 118/75
--- NOTE | 2019-08-16 19:50 | NUR ---
MS RN NOTES PATIENT IN BED, ALERT AND ORIENTED X 4. SHOWS NO SIGNS OF ACUTE RESPIRATORY DISTRESS, NO ACUTE PAIN. CLINICAL TRIAL. PT PLEASANT TO STAFF. DENIES SI AND HALLUCINATIONS AT THIS TIME. BED IN LOWEST POSITION, LOCKED, AND CALL LIGHT KEPT WITHIN REACH. WILL CONTINUE TO MONITOR.
[2019-08-16 20:00] VITALS: BP 118/75
--- NOTE | 2019-08-17 06:34 | NUR ---
MS RN NOTES PATIENT SLEPT THROUGHOUT NIGHT. DENIES SI AND HALLUCINATIONS AT THIS TIME. ALL DUE MEDICATIONS GIVEN. BED IN LOWEST POSITION, LOCKED, AND CALL LIGHT KEPT WITHIN REACH. WILL ENDORSE TO ONCOMING NURSE.
--- NOTE | 2019-08-17 07:44 | NUR ---
RN OPENING NOTES Received pt. awake in bed and responsive to staff. No sign of distress and no agitation noted. Safety precautions in place. Bed locked and set to lowest position with side rails x 2 up. Call light within reach. Will continue to monitor.
[2019-08-17 08:00] VITALS: BP 131/83
[2019-08-17] MEDS: BENAZEPRIL 40 MG PO SCH (08:13)
[2019-08-17] MEDS: HYDROCHLOROTHIAZIDE 50 MG PO SCH (08:13)
[2019-08-17] MEDS: QUETIAPINE 50 MG PO SCH ×3 (08:14→16:05)
[2019-08-17] MEDS: LORAZEPAM 1 MG TABLET FOR AGITATION PO PRN (09:11)
--- NOTE | 2019-08-17 09:11 | NUR ---
Pt. is anxious and asking for anti anxiety med and Ativan 1 mg po prn given.
[2019-08-17 16:00] VITALS: BP 109/74
--- NOTE | 2019-08-17 19:00 | NUR ---
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 denies any pain or any discomfort. per am nurse pt can go for smoke by himself per Dr Argueta ordered. will continue monitoring.
[2019-08-17 20:00] VITALS: BP 113/70
--- NOTE | 2019-08-17 23:46 | NUR ---
ms credit collections specialist closing notes pt resting at this time. no signs of any distress noted. endorse to another nurse for continuity of care.
--- NOTE | 2019-08-18 06:31 | NUR ---
RN NOTES AWAKE, CALM AND COOPERATIVE, PT. NEEDS ATTENDED
--- NOTE | 2019-08-18 07:56 | NUR ---
RN Notes: Received pt. awake in bed, responsive to staff, no distress and no agitation noted. Will continue to monitor.
[2019-08-18 08:00] VITALS: BP 119/66
[2019-08-18] MEDS: BENAZEPRIL 40 MG PO SCH (08:22)
[2019-08-18] MEDS: HYDROCHLOROTHIAZIDE 50 MG PO SCH (08:22)
[2019-08-18] MEDS: QUETIAPINE 50 MG PO SCH ×3 (08:22→16:21)
[2019-08-18 16:00] VITALS: BP 109/66
--- NOTE | 2019-08-18 18:46 | NUR ---
RN Closing Notes: Pt. is asleep in bed at this time, breathing is even and unlabored. Ate 100% for dinner, No distress and no agiation noted. Will endorse to incoming nurse for the continuity of care.
[2019-08-18 20:00] VITALS: BP 133/62
--- NOTE | 2019-08-18 20:00 | NUR ---
RN NOTES RECEIVED PT. AWAKE ON BED, A/OX4, AMBULATORY CALM AND COOPERATVE. WILL CONTINUE TO MONITOR
--- NOTE | 2019-08-19 06:30 | NUR ---
RN NOTES SLEEPING BUT AROUSABLE, CALM AND COOPERATIVE, PT. NEEDS ATTENDED
--- NOTE | 2019-08-19 07:28 | NUR ---
MS RN NOTES RECEIVED PATIENT IN BED RESTING COMFORTABLY IN MODERATE HIGH BACK REST. A/O X3. ABLE TO MAKE NEEDS KNOWN . NO SIGNS OF DISTRESS NOTED AT THIS TIME. SAFETY MEASURES IN [place], BED IN LOWEST LOCKED POSITION, SIDE RAIL UP X 2, CALL LIGHT WITHIN REACH. WILL CONTINUE TO MONITOR.
[2019-08-19] MEDS: HYDROCHLOROTHIAZIDE 50 MG PO SCH (08:38)
[2019-08-19] MEDS: QUETIAPINE 50 MG PO SCH ×3 (08:38→16:35)
[2019-08-19] MEDS: BENAZEPRIL 40 MG PO SCH (08:38)
[2019-08-19 08:43] VITALS: BP 122/79
[2019-08-19 16:15] VITALS: BP 111/69
--- NOTE | 2019-08-19 18:46 | NUR ---
MS RN NOTES PATIENT IN BED RESTING COMFORTABLY IN MODERATE HIGH BACK REST. A/O X3. ABLE TO MAKE NEEDS KNOWN . NO SIGNS OF DISTRESS NOTED THROUGHOUT THE SHIFT. SAFETY MEASURES IN [place], BED IN LOWEST LOCKED POSITION, SIDE RAIL UP X 2, CALL LIGHT WITHIN REACH. WILL ENDORSE TO GUEST RELATIONS AGENT NURSE FOR NEYDA.
--- NOTE | 2019-08-19 19:40 | NUR ---
CLINICAL TRIAL RN NOTE: PATIENT RESTING IN BED, NO ACUTE DISTRESS NOTED. BREATHING EVEN AND UNLABORED, NO SOB NOTED. PATIENT IS CALM AN COOPERATIVE. BED LOCKED AND IN LOWEST POSITION, CALL LIGHT IN REACH. WILL CONTINUE TO MONITOR.
[2019-08-19 20:00] VITALS: BP 113/74
--- NOTE | 2019-08-20 03:15 | NUR ---
CLINICAL TRIAL RN NOTE: PATIENT SLEEPING IN BED, NO ACUTE DISTRESS NOTED. BREATHING EVEN AND UNLABORED, NO SOB NOTED. BED LOCKED AND IN LOWEST POSITION, CALL LIGHT IN REACH. WILL CONTINUE TO MONITOR.
--- NOTE | 2019-08-20 06:10 | NUR ---
CLINICAL TRIAL RN NOTE: PATIENT RESTING IN BED, NO ACUTE DISTRESS NOTED. BREATHING EVEN AND UNLABORED, NO SOB NOTED. PATIENT IS CALM AN COOPERATIVE THROUGHOUT SHIFT. BED LOCKED AND IN LOWEST POSITION, CALL LIGHT IN REACH. WILL ENDORSE TO DAY NURSE TO CONTINUE WITH PLAN OF CARE.
--- NOTE | 2019-08-20 07:59 | NUR ---
RN OPENING NOTE: RECEIVED PATIENT AWAKE AND AOX4 RESTING IN BED. PATIENT IS AMBULATORY. DENIES ANY PSYCHIATRIC SYMPTOMS OR PAIN. SAFETY PRECAUTIONS IN PLACE. BED IN LOW POSITION, LOCKED WITH 2 SIDE RAILS UP FOR SAFETY. CALL LIGHT WITHIN REACH. ALL NEEDS ATTENDED TO. WILL CONTINUE TO MONITOR.
[2019-08-20 08:00] VITALS: BP 118/68
[2019-08-20] MEDS: QUETIAPINE 50 MG PO SCH ×3 (09:19→16:32)
[2019-08-20] MEDS: HYDROCHLOROTHIAZIDE 50 MG PO SCH (09:19)
[2019-08-20] MEDS: BENAZEPRIL 40 MG PO SCH (09:19)
[2019-08-20] MEDS: LORAZEPAM 1 MG TABLET FOR AGITATION PO PRN (10:11)
[2019-08-20 16:00] VITALS: BP 127/81
--- NOTE | 2019-08-20 18:47 | NUR ---
RN CLOSING NOTE: PATIENT AWAKE AND AOX4 RESTING IN BED. PATIENT IS AMBULATORY. DENIES ANY PSYCHIATRIC SYMPTOMS OR PAIN. SAFETY PRECAUTIONS IN PLACE. BED IN LOW POSITION, LOCKED WITH 2 SIDE RAILS UP FOR SAFETY. CALL LIGHT WITHIN REACH. ALL NEEDS ATTENDED TO. WILL ENDORSE CARE TO ONCOMING RN FOR NEYDA
[2019-08-20 20:00] VITALS: BP 111/51
--- NOTE | 2019-08-20 20:00 | NUR ---
RN NOTES RECEIVED PT. AWAKE ON BED, A/OX4, CALM AND COOPERATIVE, DENIES PAIN, NO SOB, CALL LIGHT WITHIN REACH, [id number], CONTINUE TO MONITOR
--- NOTE | 2019-08-21 06:36 | NUR ---
RN NOTES AWAKE, CALM AND COOPERATIVE, PT. NEEDS ATTENDED
--- NOTE | 2019-08-21 07:35 | NUR ---
CT/MS RN OPENING NOTES RECEIVED PT IN BED, AWAKE, A/O X3-4. TOLERATING RA WITH NO ACUTE RESPIRATORY DISTRESS NOTED. PT DENIES ANY PAIN OR DISCOMFORT AT THIS TIME. PT DENIES ANY CONCERNS OR QUESTIONS AT THIS TIME. NO IV ACCESS. PT KEPT COMFORTABLE IN BED. CALL LIGHT KEPT WITHIN REACH. PT'S BED IN LOWEST, LOCKED POSITION WITH SR X3. WILL CONTINUE PLAN OF CARE.
[2019-08-21 08:00] VITALS: BP 106/81
[2019-08-21] MEDS: HYDROCHLOROTHIAZIDE 50 MG PO SCH (09:00)
[2019-08-21] MEDS: QUETIAPINE 50 MG PO SCH ×3 (09:00→17:12)
[2019-08-21] MEDS: BENAZEPRIL 40 MG PO SCH (09:00)
[2019-08-21] MEDS: LORAZEPAM 1 MG TABLET FOR AGITATION PO PRN (10:52)
[2019-08-21 16:00] VITALS: BP 106/67
[2019-08-21 20:00] VITALS: BP 110/56
--- NOTE | 2019-08-21 20:04 | NUR ---
RN NOTES PT IN BED, AWAKE, COMFORTABLE. DENIES ANY PAIN OR DISCOMFORT. DENIES ANY CONCERNS WELL AT THIS TIME. WILL CONTINUE TO MONITOR.
--- NOTE | 2019-08-21 22:30 | NUR ---
RN pm NOTES report recieved from kenton [email or web address]. care assumed. PT IN BED, with eyes closed patient clinical trial vs reviewed and wnl. WILL CONTINUE TO MONITOR. bed down locked srx2. call light within reach.
--- NOTE | 2019-08-22 07:00 | NUR ---
RN NOTES CLOSING. PT IN BED, WITH EYES CLOSED RESP EVEN AND UNLABORED IN NO APPARENT DISTRESS. PATIENT SLEPT THROUGH MOST OF THE SHIFT AND DID NOT HAVE ANY ISSUES. WILL ENDORSE TO NEXT SHIFT. RN.
[2019-08-22 08:00] VITALS: BP 129/84
[2019-08-22] MEDS: QUETIAPINE 50 MG PO SCH ×2 (08:32→17:18)
[2019-08-22] MEDS: BENAZEPRIL 40 MG PO SCH (08:34)
[2019-08-22] MEDS: HYDROCHLOROTHIAZIDE 50 MG PO SCH (08:34)
[2019-08-22 16:00] VITALS: BP 117/71
[2019-08-22] MEDS: LORAZEPAM 1 MG TABLET FOR AGITATION PO PRN (16:03)
--- NOTE | 2019-08-22 18:44 | NUR ---
CT/MS RN CLOSING NOTES PT REMAINS IN BED, AWAKE, A/O X3-4. TOLERATING RA WITH NO ACUTE RESPIRATORY DISTRESS NOTED. PT DENIES ANY PAIN OR DISCOMFORT AT THIS TIME. NO IV ACCESS. PT KEPT COMFORTABLE IN BED. ALL NEEDS AND CARE ATTENDED. CALL LIGHT KEPT WITHIN REACH. PT'S BED IN LOWEST, LOCKED POSITION WITH SR X3. WILL ENDORSE TO INCOMING NIGHT NURSE FOR NEYDA.
--- NOTE | 2019-08-22 19:58 | NUR ---
CLINICAL TRIAL MS RN NOTES RECEIVED PATIENT IN BED, AWAKE, A/O X3-4. TOLERATING RA WITH NO SIGNS OF ACUTE RESPIRATORY DISTRESS NOTED. PT DENIES ANY PAIN OR DISCOMFORT AT THIS TIME. PT DENIES ANY CONCERNS OR QUESTIONS AT THIS TIME. NO IV ACCESS. PT KEPT COMFORTABLE IN BED. SAFETY MEASURES IN PLACE. CALL LIGHT KEPT WITHIN REACH. PT'S BED IN LOWEST, LOCKED POSITION WITH SR X3. WILL CONTINUE PLAN OF CARE.
[2019-08-22 20:00] VITALS: BP 119/78
[2019-08-22 20:39] VITALS: BP 119/78
--- NOTE | 2019-08-23 06:34 | NUR ---
CLINICAL TRIAL MS RN NOTES ABLE TO REST AND SLEPT WITH LONG INTERVALS. PATIENT IN BED, AWAKE, A/O X3-4. TOLERATING RA WITH NO SIGNS OF ACUTE RESPIRATORY DISTRESS NOTED. INFORMED PATIENT THAT HE WILL BE MOVED TO ROOM 215-1.PT DENIES ANY PAIN OR DISCOMFORT AT THIS TIME. PT DENIES ANY CONCERNS OR QUESTIONS AT THIS TIME. NO IV ACCESS. PT KEPT COMFORTABLE IN BED. SAFETY MEASURES IN PLACE. CALL LIGHT KEPT WITHIN REACH. PT'S BED IN LOWEST, LOCKED POSITION WITH SR X3. WILL ENDORSE TO AM NURSE FOR CONTINUITY OF CARE.
[2019-08-23 08:00] VITALS: BP 124/79
--- NOTE | 2019-08-23 08:00 | NUR ---
RN NOTES: PATIENT TRANSFERRED TO ROOM 215-1. ORIENTED TO UNIT. PATIENT IS CALM, COOPERATIVE. BREATHING UNLABORED WITH EQUAL RISE AND FALL OF CHEST. NO SIGNS OF DISTRESS NOTED. DENIES PAIN. BED IN LOW POSITION, LOW, LOCKED WITH 2 SIDE RAILS UP FOR SAFETY. WILL CONTINUE TO MONITOR
[2019-08-23] MEDS: BENAZEPRIL 40 MG PO SCH (08:12)
[2019-08-23] MEDS: QUETIAPINE 50 MG PO SCH ×2 (08:13→17:12)
[2019-08-23] MEDS: HYDROCHLOROTHIAZIDE 50 MG PO SCH (08:13)
[2019-08-23] MEDS: LORAZEPAM 1 MG TABLET FOR AGITATION PO PRN (08:58)
[2019-08-23 16:00] VITALS: BP 112/53
[2019-08-23 20:20] VITALS: BP 109/72
[2019-08-24 08:00] VITALS: BP 113/53
[2019-08-24 08:39] VITALS: BP 136/72
[2019-08-24] MEDS: QUETIAPINE 50 MG PO SCH (08:39)
[2019-08-24] MEDS: BENAZEPRIL 40 MG PO SCH (08:39)
[2019-08-24] MEDS: HYDROCHLOROTHIAZIDE 50 MG PO SCH (08:39)
--- NOTE | 2019-08-24 09:00 | NUR ---
RN NOTE- PT ALERT ORIENTED TO PERSON PLACE TIME AND PURPOSE. NO BEHAVIORAL ISSUES. SHOWERED, INTERACTIVE. DOING LAUNDRY. PO INTAKE GOOD. MED COMPLIANT. DENIES SI HI AH VH AT PRESENT. NEEDS ATTENDED. QUIET WITHDRAWN
[2019-08-24] MEDS ORDERED: BENZTROPINE MESYLATE (1 MG) 1 MG TABLET PO PRN (12:00)
[2019-08-24] MEDS ORDERED: LORAZEPAM 1 MG TABLET ONE (12:12)
[2019-08-24 16:00] VITALS: BP 142/58
--- NOTE | 2019-08-24 18:47 | NUR ---
RN NOTE- PT CALM COOPERATIVE DIRECTABLE DENIES SI HI AH VH. MED COMPLIANT DR PERALES IN TO SEE PT
[2019-08-24] MEDS: LORAZEPAM 1 MG TABLET FOR AGITATION PO PRN (20:02)
--- NOTE | 2019-08-24 20:03 | NUR ---
GPS RN NOTES: ANXIOUS PT C/O OF FEELING ANXIOUS AND RESTLESS. PT ASKED FOR ATIVAN. OFFERED ATIVAN 1MG PO PRN ORDERED. PT AGREED AND TOLERATED MEDICATION WELL. CONTINUE TO MONITOR.
[2019-08-24 20:30] VITALS: BP 115/84
--- NOTE | 2019-08-25 06:19 | NUR ---
GPS RN CLOSING NOTES: PT IN BED SLEEPING COMFORTABLY. PT IS EASILY AWAKEN. NO S/S SOB. BREATHING EVEN AND UNLABORED. NO RESPIRATORY DISTRESS. NO S/S PF PAIN NOTES. CALL LIGHT WITHIN REACH. KEPT CLEAN AND DRY. CONTINUE TO MONITOR.
[2019-08-25 08:00] VITALS: BP 123/80
--- NOTE | 2019-08-25 08:14 | NUR ---
RN OPENING NOTE: RECEIVED PATIENT AWAKE AND AOX4. PATIENT REPORTS FEELING WELL RESTED. PATIENT IS CALM, COOPERATIVE, COMPLIANT WITH MEDICATION ADMINISTRATION. PATIENT WENT ON A SMOKE BREAK THIS MORNING. BREATHING IS EVEN AND UNLABORED WITH EQUAL RISE AND FALL OF CHEST. SAFETY PRECAUTIONS IN PLACE. BED IN LOCKED, LOW POSITION WITH 2 SIDE RAILS UP FOR SAFETY AND CALL PAYNE WITHIN REACH. WILL CONTINUE TO MONITOR.
[2019-08-25] MEDS: HYDROCHLOROTHIAZIDE 50 MG PO SCH (09:07)
[2019-08-25] MEDS: BENAZEPRIL 40 MG PO SCH (09:07)
[2019-08-25] MEDS: QUETIAPINE 50 MG PO SCH (09:21)
[2019-08-25 16:00] VITALS: BP 114/68
[2019-08-25 20:00] VITALS: BP 100/74
--- NOTE | 2019-08-25 20:47 | NUR ---
GPS RN NOTE, RECEIVED PATIENT AWAKE AND IN BED, PATIENT HAS NO COMPLAINTS OF PAIN. PATIENT IS DISPLAYING NO S/S OF APPARENT DISTRESS AT THIS TIME. PATIENT BREATHING IS UNLABORED WITH EQUAL RISE AND FALL OF THE CHEST. PATIENT IS ALERT AND ORIENTED X 3 ON ROOM AIR WITH A SPO2 97%. PATIENT IS COMPLIANT WITH MEDICATION, CALM, ANXIOUS AT TIMES AND COOPERATIVE. PATIENT DENIES SUICIDE IDEATIONS AND HOMICIDAL IDEATIONS AT THIS TIME. PATIENT ASSISTED WITH TURNING AND REPOSITIONING Q2HR AND PRN FOR COMFORT AND CIRCULATION. PATIENT HAS NO NEEDS AT THIS TIME. PATIENT EDUCATED ON THE USE OF THE CALL PAYNE. PATIENT BED SIDE RAILS UP X 2 FOR SAFETY, BED IS LOCKED, AND LOW. WILL CONTINUE TO MONITOR Q15MIN WITH THE HELP OF STAFF TO MAINTAIN SAFETY.
[2019-08-25] MEDS: LORAZEPAM 1 MG TABLET FOR AGITATION PO PRN (21:44)
--- NOTE | 2019-08-25 21:44 | NUR ---
GPS RN NOTE, PATIENT HAS A COMPLAINT OF FEELING ANXIOUS AND WOULD LIKE ATIVAN AT THIS TIME. PATIENT VITAL SIGNS ARE STABLE. GAVE ATIVAN 1 MG PO Q4HR PRN ORDERED. WILL REASSESS FOR ANXIETY AND I WILL CONTINUE TO MONITOR THIS PATIENT.
[2019-08-26 07:50] VITALS: BP_SYST 113; BP_SYST 137; BP_DIAS 79; BP_DIAS 93
[2019-08-26] MEDS: HYDROCHLOROTHIAZIDE 50 MG PO SCH (08:18)
[2019-08-26] MEDS: BENAZEPRIL 40 MG PO SCH (08:19)
--- NOTE | 2019-08-26 08:30 | NUR ---
RN Opening Notes: Received pt. awake in bed, no distress and no agitation noted. Ate 100% for breakfast, compliant on meds. Pt. went to smoke with staff. Needs attended and will continue to monitor for safety.
[2019-08-26] MEDS: ACETAMINOPHEN ES 500 MG TABLET PO PRN (15:03)
[2019-08-26] MEDS: LORAZEPAM 1 MG TABLET FOR AGITATION PO PRN (15:03)
--- NOTE | 2019-08-26 15:03 | NUR ---
RN NOTE- PT WITH C/O HEADACHE AND RESTLESSNESS. REQUESTING PRN RX. ATIVAN 1 MG AND TYLENOL 1000 MG GIVEN AT THIS TIME. CONTINUE TO MONITOR PT AND ASSIST WITH NEEDS.
[2019-08-26 16:11] VITALS: BP 110/60
--- NOTE | 2019-08-26 18:56 | NUR ---
RN Closing Notes: Pt. is awake in bed at this time, no distress and no agitation noted. Ate 100% for dinner, pt. had smoke break. Needs attended and will continue to monitor.
--- NOTE | 2019-08-26 19:30 | NUR ---
GPS RN NOTE, RECEIVED PATIENT AWAKE AND IN BED, PATIENT HAS NO COMPLAINTS OF PAIN. PATIENT IS DISPLAYING NO S/S OF APPARENT DISTRESS AT THIS TIME. PATIENT BREATHING IS UNLABORED WITH EQUAL RISE AND FALL OF THE CHEST. PATIENT IS ALERT AND ORIENTED X 3 ON ROOM AIR WITH A SPO2 95%. PATIENT IS COMPLIANT WITH MEDICATION, CALM, ANXIOUS AT TIMES AND COOPERATIVE. PATIENT DENIES SUICIDE IDEATIONS AND HOMICIDAL IDEATIONS AT THIS TIME. PATIENT ASSISTED WITH TURNING AND REPOSITIONING Q2HR AND PRN FOR COMFORT AND CIRCULATION. PATIENT HAS NO NEEDS AT THIS TIME. PATIENT EDUCATED ON THE USE OF THE CALL PAYNE. PATIENT BED SIDE RAILS UP X 2 FOR SAFETY, BED IS LOCKED, AND LOW. WILL CONTINUE TO MONITOR Q15MIN WITH THE HELP OF STAFF TO MAINTAIN SAFETY.
[2019-08-26 20:08] VITALS: BP 105/69
[2019-08-27] MEDS: ZOLPIDEM TARTRATE 10 MG TABLET PO PRN (02:08)
--- NOTE | 2019-08-27 02:08 | NUR ---
GPS RN NOTE, PATIENT HAS A COMPLAINT OF NOT BEING ABLE TO SLEEP AND IS REQUESTING AMBIEN AT THIS TIME. PATIENT VITAL SIGNS ARE STABLE. GAVE AMBIEN 10 MG PO HS PRN ORDERED. WILL REASSESS FOR INSOMNIA AND I WILL CONTINUE TO MONITOR THIS PATIENT.
[2019-08-27 08:00] VITALS: BP 114/68
[2019-08-27] MEDS: BENAZEPRIL 40 MG PO SCH (08:13)
[2019-08-27] MEDS: HYDROCHLOROTHIAZIDE 50 MG PO SCH (09:00)
--- NOTE | 2019-08-27 09:06 | NUR ---
RN-CO: BP IS 114/68 HCTZ NOT GIVEN AND WAS REFUSED BY PT
[2019-08-27 16:00] VITALS: BP 105/64
--- NOTE | 2019-08-27 19:30 | NUR ---
GPS RN NOTE, RECEIVED PATIENT AWAKE AND IN BED, PATIENT HAS NO COMPLAINTS OF PAIN. PATIENT IS DISPLAYING NO S/S OF APPARENT DISTRESS AT THIS TIME. PATIENT BREATHING IS UNLABORED WITH EQUAL RISE AND FALL OF THE CHEST. PATIENT IS ALERT AND ORIENTED X 3 ON ROOM AIR WITH A SPO2 95%. PATIENT IS COMPLIANT WITH MEDICATION, CALM, ANXIOUS AT TIMES AND COOPERATIVE. PATIENT DENIES SUICIDE IDEATIONS AND HOMICIDAL IDEATIONS AT THIS TIME. PATIENT ASSISTED WITH TURNING AND REPOSITIONING Q2HR AND PRN FOR COMFORT AND CIRCULATION. PATIENT HAS NO NEEDS AT THIS TIME. PATIENT EDUCATED ON THE USE OF THE CALL PAYNE. PATIENT BED SIDE RAILS UP X 2 FOR SAFE
[2019-08-27 20:00] VITALS: BP 124/78
[2019-08-27] MEDS: ACETAMINOPHEN ES 500 MG TABLET PO PRN (21:05)
--- NOTE | 2019-08-27 21:05 | NUR ---
GPS RN NOTE, PATIENT HAS A COMPLAINT OF A HEADACHE AT 4 OUT 10 ON THE PAIN SCALE AND IS REQUESTING TYLENOL AT THIS TIME . PATIENT VITAL SIGNS ARE STABLE. GAVE TYLENOL 1,000 MG PO Q8HR PRN ORDERED. WILL REASSESS FOR PAIN AND I WILL CONTINUE TO MONITOR THIS PATIENT.
[2019-08-27] MEDS: LORAZEPAM 1 MG TABLET FOR AGITATION PO PRN (21:10)
--- NOTE | 2019-08-27 21:10 | NUR ---
GPS RN NOTE, PATIENT HAS A COMPLAINT OF FEELING ANXIOUS AND IS REQUESTING ATIVAN AT THIS TIME. PATIENT VITAL SIGNS ARE STABLE. GAVE ATIVAN 1 MG PO Q4HR PRN ORDERED. WILL REASSESS FOR ANXIETY AND I WILL CONTINUE TO MONITOR THIS PATIENT.
[2019-08-28 08:00] VITALS: BP 109/75
[2019-08-28] MEDS: HYDROCHLOROTHIAZIDE 50 MG PO SCH (08:17)
[2019-08-28] MEDS: BENAZEPRIL 40 MG PO SCH (08:17)
--- NOTE | 2019-08-28 08:18 | NUR ---
RN-CO: Benaepril and HCTZ not given for blood pressure of 108/74.
[2019-08-28] MEDS: LORAZEPAM 1 MG TABLET FOR AGITATION PO PRN (12:59)
--- NOTE | 2019-08-28 12:59 | NUR ---
RN-CO: ATIVAN 1 MG PO FOR ANXIETY.
[2019-08-28 16:21] VITALS: BP 113/76
[2019-08-28 20:02] VITALS: BP 118/70
[2019-08-29 08:00] VITALS: BP 144/96
[2019-08-29] MEDS: HYDROCHLOROTHIAZIDE 50 MG PO SCH (08:39)
[2019-08-29] MEDS: BENAZEPRIL 40 MG PO SCH (08:39)
[2019-08-29] MEDS: ACETAMINOPHEN ES 500 MG TABLET PO PRN (13:19)
[2019-08-29] MEDS: LORAZEPAM 1 MG TABLET PO PRN (13:20)
--- NOTE | 2019-08-29 13:20 | NUR ---
RN NOTE:PATIENT C/O ANXIETY MEDICATED WITH ATIVAN 1 MG PO FOR ANXIETY.WILL CONTINUE TO MONITOR .
--- NOTE | 2019-08-29 13:21 | NUR ---
RN NOTE:PATIENT C/O HEADACHE MEDICATED TYLENOL WILL CONTINUE TO MONITOR .
[2019-08-29 16:00] VITALS: BP 121/64
[2019-08-29 20:14] VITALS: BP 106/64
[2019-08-29] MEDS: ZOLPIDEM TARTRATE 10 MG TABLET PO PRN (21:50)
[2019-08-29] MEDS: [UNRECOGNIZED DRUG - OTHER] PO SCH (21:50)
[2019-08-30 08:00] VITALS: BP 133/81
[2019-08-30] MEDS: BENAZEPRIL 40 MG PO SCH (08:36)
[2019-08-30] MEDS: HYDROCHLOROTHIAZIDE 50 MG PO SCH (08:36)
[2019-08-30] MEDS: LORAZEPAM 1 MG TABLET PO PRN (14:07)
--- NOTE | 2019-08-30 14:07 | NUR ---
RN NOTE- PT C/O ANXIETY, RESTLESSNESS. ATIVAN 1 MG GIVEN.
[2019-08-30 16:00] VITALS: BP 118/68
--- NOTE | 2019-08-30 17:52 | NUR ---
Rn Note- Pt. is awake in bed at this time, no distress and no agitation noted. Ativan given earlier, effective. Ate 100% for dinner, pt. had smoke break. Needs attended and will continue to monitor
[2019-08-30 20:20] VITALS: BP 104/75
[2019-08-30] MEDS: [UNRECOGNIZED DRUG - OTHER] PO SCH (22:04)
[2019-08-30] MEDS: ZOLPIDEM TARTRATE 10 MG TABLET PO PRN (22:06)
[2019-08-31 08:00] VITALS: BP 127/82
[2019-08-31] MEDS: BENAZEPRIL 40 MG PO SCH (08:23)
[2019-08-31] MEDS: HYDROCHLOROTHIAZIDE 50 MG PO SCH (08:24)
[2019-08-31] MEDS: LORAZEPAM 1 MG TABLET PO PRN (08:24)
--- NOTE | 2019-08-31 09:02 | NUR ---
RN Initial Notes: Received pt. awake in bed, responsive to staffs, no distress and no agitation noted. Ate 100% for breakfast, compliant on meds. Pt. was anxious and asking for ativan and given and pt. had smoking with staff. Needs attended and will continue to monitor.
[2019-08-31 16:00] VITALS: BP 107/55
--- NOTE | 2019-08-31 19:17 | NUR ---
RN Closing Notes; Pt. is awake in bed at this time, ate 100% for dinner. No distress noted and will endorse to the next shift for the continuity of care.
--- NOTE | 2019-08-31 19:30 | NUR ---
GPS RN NOTE, RECEIVED PATIENT AWAKE AND IN BED, PATIENT HAS NO COMPLAINTS OF PAIN. PATIENT IS DISPLAYING NO S/S OF APPARENT DISTRESS AT THIS TIME. PATIENT BREATHING IS UNLABORED WITH EQUAL RISE AND FALL OF THE CHEST. PATIENT IS ALERT AND ORIENTED X 3 ON ROOM AIR WITH A SPO2 96%. PATIENT IS COMPLIANT WITH MEDICATION, CALM, ANXIOUS AT TIMES AND COOPERATIVE. PATIENT DENIES SUICIDE IDEATIONS AND HOMICIDAL IDEATIONS AT THIS TIME. PATIENT ASSISTED WITH TURNING AND REPOSITIONING Q2HR AND PRN FOR COMFORT AND CIRCULATION. PATIENT HAS NO NEEDS AT THIS TIME. PATIENT EDUCATED ON THE USE OF THE CALL PAYNE. PATIENT BED SIDE RAILS UP X 2 FOR SAFETY, BED IS LOCKED, AND LOW. WILL CONTINUE TO MONITOR Q15MIN WITH THE HELP OF STAFF TO MAINTAIN SAFETY.
[2019-08-31 19:59] VITALS: BP 94/62
[2019-08-31] MEDS: ACETAMINOPHEN ES 500 MG TABLET PO PRN (21:39)
[2019-08-31] MEDS: [UNRECOGNIZED DRUG - OTHER] PO SCH (21:39)
[2019-09-01 08:00] VITALS: BP 122/63
[2019-09-01] MEDS: BENAZEPRIL 40 MG PO SCH (08:15)
[2019-09-01] MEDS: HYDROCHLOROTHIAZIDE 50 MG PO SCH (08:16)
--- NOTE | 2019-09-01 08:50 | NUR ---
RN Initial Notes: Received pt. awake in bed, responsive to staff, ate 100% for breakfast, compliant med. Needs attended, no distress and no agitation noted. Will continue to monitor for safety.
--- NOTE | 2019-09-01 11:30 | NUR ---
Birgit from the doctor's office came and picked up pt. to Dr. Cates's office.
--- NOTE | 2019-09-01 12:40 | NUR ---
Pt. just came back brom the doctor's office. Pt. without distress and will continue to monitor.
[2019-09-01 15:50] VITALS: BP 110/67
[2019-09-01 20:00] VITALS: BP 114/68
[2019-09-01] MEDS: ACETAMINOPHEN ES 500 MG TABLET PO PRN (20:37)
[2019-09-01] MEDS: LORAZEPAM 1 MG TABLET PO PRN (20:38)
[2019-09-01] MEDS: [UNRECOGNIZED DRUG - OTHER] PO SCH (21:51)
[2019-09-02 08:00] VITALS: BP 136/69
--- NOTE | 2019-09-02 08:00 | NUR ---
RN NOTES RECEIVED PATIENT IN THE BED A/O X3/4 STABLE, NO ACUTE RESPIRATORY DISTRESS, V.S STABLE, PATIENT ON CLINICAL TRIAL, REFUSED PAIN, REFUSED SI/HI AT THIS TIME, COOPERATIVE, REDIRECTABLE. PATIENT SELF CARE, AMBULATORY. ADMINISTERED SCHEDULED MEDICATION, PATIENT TOLERATED BREAKFAST WELL. CALL PAYNE NEAR TO REACH SAFETY PRECAUTION MAINTAINED ALL THE TIME.
[2019-09-02] MEDS: HYDROCHLOROTHIAZIDE 50 MG PO SCH (09:15)
[2019-09-02] MEDS: BENAZEPRIL 40 MG PO SCH (09:16)
--- NOTE | 2019-09-02 10:00 | NUR ---
RN NOTES PATIENT OUT OF UNIT FLIGHT SERVICE SPECIALIST WITH MARY OF CLINICAL TRIAL VIA Dr PERALES.
[2019-09-02 16:00] VITALS: BP 100/58
[2019-09-02 20:00] VITALS: BP 113/80
[2019-09-02] MEDS: [UNRECOGNIZED DRUG - OTHER] PO SCH (21:27)
[2019-09-03 08:00] VITALS: BP 110/72
[2019-09-03] MEDS: BENAZEPRIL 40 MG PO SCH (08:21)
[2019-09-03] MEDS: HYDROCHLOROTHIAZIDE 50 MG PO SCH (08:21)
--- NOTE | 2019-09-03 08:43 | NUR ---
RN Initial Notes: Received pt. awake in bed, no distress and no agitation noted. Ate 100% for breakfast, compliant on meds. Needs attended and will continue to monitor for safety.
[2019-09-03] MEDS: LORAZEPAM 1 MG TABLET PO PRN (11:55)
--- NOTE | 2019-09-03 11:56 | NUR ---
Pt. is anxious and asking for an ativan po prn and given.
[2019-09-03 16:00] VITALS: BP 112/74
[2019-09-03 20:14] VITALS: BP 120/59
[2019-09-03] MEDS: [UNRECOGNIZED DRUG - OTHER] PO SCH (21:29)
[2019-09-04 08:00] VITALS: BP 111/74
[2019-09-04] MEDS: BENAZEPRIL 40 MG PO SCH (08:31)
[2019-09-04] MEDS: HYDROCHLOROTHIAZIDE 50 MG PO SCH (08:52)
[2019-09-04 16:00] VITALS: BP 123/54
[2019-09-04 20:00] VITALS: BP 141/85
[2019-09-04] MEDS: [UNRECOGNIZED DRUG - OTHER] PO SCH (21:40)
[2019-09-05 08:00] VITALS: BP 109/72
[2019-09-05] MEDS: BENAZEPRIL 40 MG PO SCH (08:46)
[2019-09-05] MEDS: HYDROCHLOROTHIAZIDE 50 MG PO SCH (08:46)
--- NOTE | 2019-09-05 08:46 | NUR ---
RN-CO: HCTZ NOT GIVEN FOR BP 108/71.
[2019-09-05 16:00] VITALS: BP 119/62
[2019-09-05 20:16] VITALS: BP 122/81
[2019-09-05] MEDS: [UNRECOGNIZED DRUG - OTHER] PO SCH (21:11)
[2019-09-06 08:00] VITALS: BP 132/77
[2019-09-06] MEDS: BENAZEPRIL 40 MG PO SCH (08:48)
[2019-09-06] MEDS: HYDROCHLOROTHIAZIDE 50 MG PO SCH (08:49)
[2019-09-06 16:00] VITALS: BP 101/58
--- NOTE | 2019-09-06 19:25 | NUR ---
GPS RN OPENING NOTE: Received pt. awake in bed, no sign of distress and no agitation noted. Cooperative, med compliant. Needs attended. Will continue to monitor for safety and behavior.
--- NOTE | 2019-09-06 19:53 | NUR ---
GPS RN NOTE: ANXIETY PT. FEELING ANXIOUS AND REQUESTED FOR ATIVAN. ADMINISTERED ATIVAN 1MG PO PRN ORDERED. WILL CONTINUE TO MONITOR
[2019-09-06] MEDS: LORAZEPAM 1 MG TABLET PO PRN (19:55)
[2019-09-06 20:21] VITALS: BP 123/60
[2019-09-06] MEDS: [UNRECOGNIZED DRUG - OTHER] PO SCH (21:34)
[2019-09-07 08:00] VITALS: BP 123/73
[2019-09-07] MEDS: BENAZEPRIL 40 MG PO SCH (08:32)
[2019-09-07] MEDS: HYDROCHLOROTHIAZIDE 50 MG PO SCH (08:32)
[2019-09-07] MEDS: LORAZEPAM 1 MG TABLET PO PRN (14:21)
--- NOTE | 2019-09-07 14:22 | NUR ---
RN NOTE:PATIENT C/O ANXIETY MEDICATED WITH ATIVAN 1 MG PO FOR ANXIETY.WILL CONTINUE TO MONITOR .
[2019-09-07 16:00] VITALS: BP 109/67
[2019-09-07 20:58] VITALS: BP 111/64
--- NOTE | 2019-09-07 21:30 | NUR ---
GPS-RN NOTE: PATIENT REPORTED THAT HE HAS AN ALLERGIC REACTION WITH THE GRAPES HE HAS EATEN DURING DINNER TIME. UPON ASSESSMENT NOTED WITH SLIGHTLY SWOLLEN ON HIS LOWER LIP. V/S WNL. NO SOB NOTED. 2129 - CALLED EPIC SPOKE WITH MARLENY SONG NOTIFIED OF FINDING ASSESSMENT WITH NEW ORDER OF BENADRYL 25MG PO Q6HRS PRN NOTED AND CARRIED OUT.
[2019-09-07] MEDS: diphenhydrAMINE HCL 25 MG CAPSULE PO PRN (21:41)
[2019-09-07] MEDS: [UNRECOGNIZED DRUG - OTHER] PO SCH (21:58)
[2019-09-08] MEDS: diphenhydrAMINE HCL 25 MG CAPSULE PO PRN ×2 (03:43→20:18)
--- NOTE | 2019-09-08 03:43 | NUR ---
GPS-RN NOTE: BENADRYL PO GIVEN PT. STILL NOTED WITH SWOLLEN ON LOWER LIP. BENADRYL 25MG PO GIVEN ORDERED. PICTURE PLACED IN THE CHART. WILL CONTINUE TO MONITOR.
[2019-09-08 08:00] VITALS: BP 125/77
[2019-09-08] MEDS: BENAZEPRIL 40 MG PO SCH (08:30)
[2019-09-08] MEDS: HYDROCHLOROTHIAZIDE 50 MG PO SCH (08:30)
[2019-09-08 16:00] VITALS: BP 107/66
[2019-09-08] MEDS ORDERED: BENZTROPINE MESYLATE (1 MG) 1 MG TABLET PO STA (16:44)
[2019-09-08 20:00] VITALS: BP_SYST 115; BP_SYST 123; BP_DIAS 105; BP_DIAS 83
--- NOTE | 2019-09-08 20:18 | NUR ---
GPS RN NOTE, PATIENT HAS A COMPLAINT OF HAVING SWOLLEN LIPS AND IS REQUESTING BENADRYL AT THIS TIME. PATIENT VITAL SIGNS ARE STABLE. GAVE BENADRYL 25 MG PO Q6HR PRN ORDERED. WILL REASSESS AND CONTINUE TO MONITOR THIS PATIENT.
[2019-09-08 20:23] VITALS: BP 115/83
[2019-09-08] MEDS: [UNRECOGNIZED DRUG - OTHER] PO SCH (21:57)
[2019-09-09] MEDS: diphenhydrAMINE HCL 25 MG CAPSULE PO PRN ×2 (01:58→08:39)
[2019-09-09] MEDS: BENAZEPRIL 40 MG PO SCH (08:39)
[2019-09-09] MEDS: HYDROCHLOROTHIAZIDE 50 MG PO SCH (08:40)
--- NOTE | 2019-09-09 08:42 | NUR ---
GPS RN -NOTES PATIENT REQUESTING BENADRYL STATED" I HAVE REACTIONS WITH THE GRAPE THAT I ATE YESTERDAY " BENADRYL 25MG P.O GIVEN PRN ORDER.
--- NOTE | 2019-09-09 09:54 | NUR ---
GPS/RN-NOTES RECEIVED PATIENT SITTING IN BED ,NO ACUTE DISTRESS NOTED. COMPLIANT WITH MEDICATIONS.
--- NOTE | 2019-09-09 11:01 | NUR ---
GPS/RN-NOTES RECEIVED t.O ORDER FROM DR. PERALES TO HOLD RENATE UNTIL FURTHER NOTICE.
[2019-09-09 16:17] VITALS: BP 107/62
--- NOTE | 2019-09-09 18:22 | NUR ---
GPS/RN-NOTES PATIENT IN THE ROOM AWAKE,ALERT WATCHING ON THE PHONE.NO ACUTE DISTRESS NOTED.
--- NOTE | 2019-09-09 19:30 | NUR ---
GPS RN NOTE, RECEIVED PATIENT AWAKE AND IN BED, PATIENT HAS NO COMPLAINTS OF PAIN. PATIENT IS DISPLAYING NO S/S OF APPARENT DISTRESS AT THIS TIME. PATIENT BREATHING IS UNLABORED WITH EQUAL RISE AND FALL OF THE CHEST. PATIENT IS ALERT AND ORIENTED X 3 ON ROOM AIR WITH A SPO2 99%. PATIENT IS COMPLIANT WITH MEDICATION, CALM, ANXIOUS AT TIMES AND COOPERATIVE. PATIENT DENIES SUICIDE IDEATIONS AND HOMICIDAL IDEATIONS AT THIS TIME. PATIENT ASSISTED WITH TURNING AND REPOSITIONING Q2HR AND PRN FOR COMFORT AND CIRCULATION. PATIENT HAS NO NEEDS AT THIS TIME. PATIENT EDUCATED ON THE USE OF THE CALL PAYNE. PATIENT BED SIDE RAILS UP X 2 FOR SAFETY, BED IS LOCKED, AND LOW. WILL CONTINUE TO MONITOR Q15MIN WITH THE HELP OF STAFF TO MAINTAIN SAFETY.
[2019-09-09] MEDS: [UNRECOGNIZED DRUG - OTHER] PO SCH (21:24)
[2019-09-10 08:00] VITALS: BP 110/61
[2019-09-10] MEDS: HYDROCHLOROTHIAZIDE 50 MG PO SCH (08:36)
[2019-09-10] MEDS: BENAZEPRIL 40 MG PO SCH (08:36)
[2019-09-10 16:00] VITALS: BP 103/55
[2019-09-10] MEDS: LORAZEPAM 1 MG TABLET PO PRN (19:48)
--- NOTE | 2019-09-10 19:48 | NUR ---
GPS RN NOTE, PATIENT HAS A COMPLAINT OF FEELING ANXIOUS AND IS REQUESTING ATIVAN AT THIS TIME. PATIENT VITAL SIGNS ARE STABLE. GAVE ATIVAN 1MG PO Q4HR PRN ORDERED. WILL REASSESS FOR ANXIETY AND I WILL CONTINUE TO MONITOR THIS PATIENT.
[2019-09-10 20:00] VITALS: BP 106/65
[2019-09-10] MEDS: [UNRECOGNIZED DRUG - OTHER] PO SCH (22:35)
[2019-09-11 08:00] VITALS: BP 123/76
[2019-09-11] MEDS: BENAZEPRIL 40 MG PO SCH (08:14)
[2019-09-11] MEDS: HYDROCHLOROTHIAZIDE 50 MG PO SCH (08:17)
[2019-09-11 16:00] VITALS: BP 111/75
[2019-09-11 20:32] VITALS: BP 127/64
[2019-09-11] MEDS: [UNRECOGNIZED DRUG - OTHER] PO SCH (21:37)
[2019-09-11] MEDS: ACETAMINOPHEN ES 500 MG TABLET PO PRN (23:55)
--- NOTE | 2019-09-11 23:55 | NUR ---
GPS RN NOTE: PAIN PT. C/O HEADACHE 07/11 PAIN. ADMINISTERED TYLENOL ES 1000MG PO PRN REQUESTED AND ORDERED. WILL CONTINUE MONITOR.
[2019-09-12 08:00] VITALS: BP 116/72
[2019-09-12] MEDS: HYDROCHLOROTHIAZIDE 50 MG PO SCH (09:32)
[2019-09-12] MEDS: BENAZEPRIL 40 MG PO SCH (09:32)
[2019-09-12 16:00] VITALS: BP 122/78
[2019-09-12] MEDS: LORAZEPAM 1 MG TABLET PO PRN (18:15)
[2019-09-12 20:11] VITALS: BP 113/71
[2019-09-12] MEDS: [UNRECOGNIZED DRUG - OTHER] PO SCH (21:40)
[2019-09-13 08:00] VITALS: BP 113/73
[2019-09-13 08:03] VITALS: BP 113/73
[2019-09-13] MEDS: BENAZEPRIL 40 MG PO SCH (08:18)
[2019-09-13] MEDS: HYDROCHLOROTHIAZIDE 50 MG PO SCH (08:18)
--- NOTE | 2019-09-13 09:16 | NUR ---
RN OPENING NOTE: PATIENT IS AOX4. REPORTS VISUAL AND AUDITORY HALLUCINATIONS WITH COMMAND HALLUCINATIONS. DENIES SI AND HI. PATIENT IS CALM, COOPERATIVE, MED COMPLIANT. WITHDRAWN, ISOLATIVE. QUIET. BREATHING IS EVEN AND UNLABORED WITH EQUAL RISE AND FALL OF CHEST. SAFETY PRECAUTIONS IN PLACE. BED IN LOCKED AND LOW POSITION WITH 2 SIDE RAILS UP FOR SAFETY. WILL CONTINUE TO MONITOR Q15 FOR MOOD, SAFETY AND BEHAVIOR
[2019-09-13 16:00] VITALS: BP 100/64
[2019-09-13 20:18] VITALS: BP 106/77
[2019-09-13] MEDS: [UNRECOGNIZED DRUG - OTHER] PO SCH (21:42)
[2019-09-13] MEDS: ZOLPIDEM TARTRATE 10 MG TABLET PO PRN (23:31)
[2019-09-14 08:00] VITALS: BP 104/72
[2019-09-14] MEDS: HYDROCHLOROTHIAZIDE 50 MG PO SCH (08:11)
[2019-09-14] MEDS: BENAZEPRIL 40 MG PO SCH (08:12)
[2019-09-14] MEDS: LORAZEPAM 1 MG TABLET PO PRN (15:04)
[2019-09-14] MEDS: ACETAMINOPHEN ES 500 MG TABLET PO PRN (19:40)
[2019-09-14 20:20] VITALS: BP 122/73
[2019-09-14] MEDS: [UNRECOGNIZED DRUG - OTHER] PO SCH (22:14)
--- NOTE | 2019-09-15 01:23 | NUR ---
GPS RN NOTES: RECEIVED PT IN ROOM, AWAKE, ALERT AND ORIENTED X3. CALM AND COOPERATIVE. COMPLAINED OF HEADACHE, RATES PAIN LEVEL 6/10. TYLENOL 500MG 2 TABS GIVEN PO ORDERED. UPON REASSESSMENT 45 MINUTES LATER, PT DENIES ANYMORE PAIN. PT WAS PASSIVE, ISOLATIVE AND WITHDRAWN. PT ENCOURAGED TO VERBALIZE FEELINGS. NO S/S OF ANY DISTRESS. RESPIRATION EVEN AND UNLABORED WITH EQUAL RISE AND FALL OF THE CHEST, ON ROOM AIR. OFFERED FLUID AND SNACK TOLERATED. SAFETY AND FALL PRECAUTION OBSERVED, BED IN LOW LOCKED POSITION, CALL PAYNE WITHIN REACH. Q15 MINUTES OBSERVATION CONTINUED. WILL CONTINUE TO MONITOR PT FOR MOOD, SAFETY AND BEHAVIOR.
[2019-09-15 08:00] VITALS: BP 100/60
[2019-09-15] MEDS: HYDROCHLOROTHIAZIDE 50 MG PO SCH (08:48)
[2019-09-15] MEDS: BENAZEPRIL 40 MG PO SCH (08:48)
--- NOTE | 2019-09-15 09:22 | NUR ---
RN Opening Notes: Received pt. awake in bed, responsive to staffs, no sign of distress and no agitation noted. Ate 100% for breakfast, compliant on meds and had smoke break with staff. Will continue to monitor for safety.
[2019-09-15] MEDS: LORAZEPAM 1 MG TABLET PO PRN (12:54)
--- NOTE | 2019-09-15 12:57 | NUR ---
GPS/RN-NOTES PATIENT REQUESTING ATIVAN STATED" I'M VERY ANXIOUS". ATIVAN 1MG P.O GIVEN PRN ORDER. WILL CONT. MONITORING FOR SAFETY AND BEHAVIOR.
--- NOTE | 2019-09-15 13:30 | NUR ---
GPS/RN-NOTES PATIENT LAYING IN BED CALM NO ACUTE DISTRESS NOTED.
[2019-09-15 16:00] VITALS: BP 101/57
[2019-09-15 21:14] VITALS: BP 118/62
[2019-09-15] MEDS: [UNRECOGNIZED DRUG - OTHER] PO SCH (21:30)
[2019-09-16 07:50] VITALS: BP 135/73
[2019-09-16 08:00] VITALS: BP 135/73
[2019-09-16] MEDS: BENAZEPRIL 40 MG PO SCH (08:52)
[2019-09-16] MEDS: HYDROCHLOROTHIAZIDE 50 MG PO SCH (08:52)
[2019-09-16 16:00] VITALS: BP 115/76
--- NOTE | 2019-09-16 19:30 | NUR ---
GPS RN NOTE, RECEIVED PATIENT AWAKE AND IN BED, PATIENT HAS NO COMPLAINTS OF PAIN. PATIENT IS DISPLAYING NO S/S OF APPARENT DISTRESS AT THIS TIME. PATIENT BREATHING IS UNLABORED WITH EQUAL RISE AND FALL OF THE CHEST. PATIENT IS ALERT AND ORIENTED X 3 ON ROOM AIR WITH A SPO2 99%. PATIENT IS COMPLIANT WITH MEDICATION, CALM, ANXIOUS AT TIMES, AND COOPERATIVE. PATIENT IS UNHAPPY THAT HE HAS A ROOMMATE THAT SNORES. PATIENT DENIES SUICIDE IDEATIONS AND HOMICIDAL IDEATIONS AT THIS TIME. PATIENT ASSISTED WITH TURNING AND REPOSITIONING Q2HR AND PRN FOR COMFORT AND CIRCULATION. PATIENT HAS NO NEEDS AT THIS TIME. PATIENT EDUCATED ON THE USE OF THE CALL PAYNE. PATIENT BED SIDE RAILS UP X 2 FOR SAFETY, BED IS LOCKED, AND LOW. WILL CONTINUE TO MONITOR Q15MIN WITH THE HELP OF STAFF TO MAINTAIN SAFETY.
[2019-09-16 20:00] VITALS: BP 123/74
[2019-09-16] MEDS: [UNRECOGNIZED DRUG - OTHER] PO SCH (22:09)
--- NOTE | 2019-09-17 07:45 | NUR ---
RN NOTE THE PATIENT IS RECEIVED IN BED. PATIENT IS ALERT AND ORIENTED X4. IN ROOM AIR AND DENIES SOB. RESPIRATION REGULAR AND UNLABORED. DENIES PAIN. THE PATIENT IN NO APPARENT DISTRESS. DENIES SI, HI AND ANY TYPE OF HALLUCINATION AT THIS TIME. SAFETY MEASURES TAKEN. BED LOW AND LOCKED. WILL CONTINUE TO MONITOR.
[2019-09-17 08:00] VITALS: BP 100/62
[2019-09-17] MEDS: HYDROCHLOROTHIAZIDE 50 MG PO SCH (08:08)
[2019-09-17] MEDS: BENAZEPRIL 40 MG PO SCH (08:08)
--- NOTE | 2019-09-17 08:09 | NUR ---
GPS RN NOTE BENAZEPRIL AND HCTZ ARE NOT ADMINISTERED DUE TO PATIENT`S BLOOD PRESSURE IS 100/62.
[2019-09-17 16:00] VITALS: BP 123/72
--- NOTE | 2019-09-17 17:35 | NUR ---
RN NOTE THE PATIENT IN HIS ROOM. ALERT AND ORIENTED X4. DENIES PAIN. DENIES SOB. RESPIRATION REGULAR AND UNLABORED. DENIES SI, HI AND ANY KIND OF HALLUCINATIONS. PATIENT COOPERATIVE. BED LOW AND LOCKED. SAFETY MEASURES OBSERVED AT ALL TIMES. WILL ENDORSE TO FUNDRAISING SALE REPRESENTATIVE.
[2019-09-17 20:00] VITALS: BP 109/81
--- NOTE | 2019-09-17 20:29 | NUR ---
GPS RN NOTES: RECEIVED PT LAYING IN BED, AWAKE, ALERT AND ORIENTED X3. APPROPRIATE AFFECT, REALITY ORIENTATION DONE, PT ABLE TO GIVE APPROPRIATE ANSWERS TO QUESTIONS. PASSIVE, ISOLATIVE AND WITHDRAWN. NO S/S OF ANY DISTRESS. RESPIRATION EVEN AND UNLABORED WITH EQUAL RISE AND FALL OF THE CHEST, ON ROOM AIR. PT DENIES SI, HI AT THIS TIME. OFFERED FLUID AND SNACK TOLERATED. SAFETY AND FALL PRECAUTION OBSERVED, CALL PAYNE WITHIN REACH. Q15 MINUTES OBSERVATION CONTINUED. WILL CONTINUE TO MONITOR PT FOR MOOD, SAFETY AND BEHAVIOR.
[2019-09-17] MEDS: [UNRECOGNIZED DRUG - OTHER] PO SCH (21:54)
[2019-09-18 08:00] VITALS: BP 132/76
[2019-09-18] MEDS: HYDROCHLOROTHIAZIDE 50 MG PO SCH (08:26)
[2019-09-18] MEDS: BENAZEPRIL 40 MG PO SCH (08:26)
[2019-09-18 16:00] VITALS: BP 132/80
--- NOTE | 2019-09-18 19:40 | NUR ---
GPS RN NOTES RECEIVED PATIENT FROM MORNING SHIFT, ALERT AND ORIENTED X 3. AMBULATORY, VERBALLY RESPONSIVE AND ABLE TO FOLLOW DIRECTIONS. BREATHING REGULAR AND UNLABORED ON ROOM AIR. DENIES ANY SUICIDAL IDEATION, NO COMPLAINTS OF PAIN/DISCOMFORT REPORTED AT THIS TIME. BED LOW AND LOCKED ON SEMI FOWLERS POSITION. WILL CONTINUE TO MONITOR.
[2019-09-18 20:00] VITALS: BP 121/77
[2019-09-18 21:23] VITALS: BP 121/77
[2019-09-18] MEDS: [UNRECOGNIZED DRUG - OTHER] PO SCH (21:28)
--- NOTE | 2019-09-19 06:20 | NUR ---
GPS RN NOTES PATIENT IN BED ALERT AND ORIENTED X 3. AFEBRILE WITH NO S/S OF DISTRESS OBSERVED. DENIES ANY PAIN/DISCOMFORT. BED LOW AND LOCKED ON SEMI FOWLERS POSITION. WILL ENDORSE TO MORNING SHIFT FOR NEYDA.
[2019-09-19 08:00] VITALS: BP 129/73
[2019-09-19] MEDS: HYDROCHLOROTHIAZIDE 50 MG PO SCH (08:34)
[2019-09-19] MEDS: BENAZEPRIL 40 MG PO SCH (08:34)
--- NOTE | 2019-09-19 09:00 | NUR ---
RN NOTE- PT AWAKE, ORIENTED X 4 ALL NEEDS ATTENDED, PO INTAKE GOOD MED COMPLIANT CLEAN APPROPRIATE INTERACTIVE
[2019-09-19 16:00] VITALS: BP 131/92
--- NOTE | 2019-09-19 20:10 | NUR ---
Patient is in his room,blunted affect,very limited social interactions,no verbalization of thoughts and feelings,stays in his bed most of the time,preoccupied to his own thoughts,unmotivated ,poor eye contact and unable to verbalize coping skills.Will continue to monitor q15 min rounds for safety.
[2019-09-19 20:30] VITALS: BP 135/67
[2019-09-19] MEDS: [UNRECOGNIZED DRUG - OTHER] PO SCH (21:42)
[2019-09-20 08:00] VITALS: BP 120/82
[2019-09-20] MEDS: HYDROCHLOROTHIAZIDE 50 MG PO SCH (08:51)
[2019-09-20] MEDS: ACETAMINOPHEN ES 500 MG TABLET PO PRN ×2 (08:51→21:08)
[2019-09-20] MEDS: BENAZEPRIL 40 MG PO SCH (08:51)
--- NOTE | 2019-09-20 08:54 | NUR ---
RN NOTE:PATIENT MEDICATED WITH TYLENOL 650MG FOR BACK PAIN 11/10 WILL CONTINUE TO MONITOR .
[2019-09-20 16:00] VITALS: BP 109/65
--- NOTE | 2019-09-20 20:13 | NUR ---
GPS RN NOTE: Received patient in bed awake,requested if he can go for smoke break, appears depressed,affect is blunted,fair eye contact,no verbalization of thoughts and feeling,remain preoccupied to his own thought content,isolative ,withdrawn,up only for needs,no s/s of acute distress noted.Will continue to monitor q15 min rounds for safety.
[2019-09-20 20:58] VITALS: BP 118/64
[2019-09-21 08:00] VITALS: BP 110/66
[2019-09-21] MEDS: HYDROCHLOROTHIAZIDE 50 MG PO SCH (08:27)
[2019-09-21] MEDS: BENAZEPRIL 40 MG PO SCH (08:27)
[2019-09-21] MEDS: ACETAMINOPHEN ES 500 MG TABLET PO PRN (15:39)
[2019-09-21 16:00] VITALS: BP 126/81
[2019-09-21] MEDS ORDERED: LORAZEPAM 1 MG TABLET PO PRN (17:00)
--- NOTE | 2019-09-21 17:06 | NUR ---
RN-CO: " MADHURI HENDRICKS" CALLED AND STATED THAT DR PERALES DID NOT HOLD THE ATIVAN. HOWEVER I DOUBLE CHECK THE EMR AND THE ORDER IT WILL RESUME ON SEPTEMBER 25. THEREFORE ATIVAN IS ON HOLD. I CALLED DR PERALES IN HIS PERSONAL CP TO CLARIFY, AWAITING TO CALL BACK.
[2019-09-21] MEDS: LORAZEPAM 1 MG TABLET PO PRN (17:41)
--- NOTE | 2019-09-21 17:52 | NUR ---
RN-CO: DR PERALES SEEN AND EXAMINED THE PATIENT AND CLARIFIED THE ORDER OF ATIVAN. HE ORDERED NOTED AND CARRIED OUT.
--- NOTE | 2019-09-21 18:21 | NUR ---
RN-CO: FOLLOW UP (TO DELIVER) SEROQUEL IN THE PHARMACY.
[2019-09-21] MEDS: QUETIAPINE 50 MG PO SCH (18:26)
[2019-09-21 21:02] VITALS: BP 122/77
[2019-09-22] MEDS: LORAZEPAM 1 MG TABLET PO PRN ×3 (04:28→20:51)
--- NOTE | 2019-09-22 04:28 | NUR ---
GPS RN NOTE: ANXIETY PT. C/O OF BEING ANXIOUS AND REQUESTED ATIVAN. ADMINISTERED ATIVAN 1MG PO PRN ORDERED. WILL CONTINUE TO MONITOR FOR SAFETY AND BEHAVIOR.
[2019-09-22 08:00] VITALS: BP 112/73
[2019-09-22] MEDS: BENAZEPRIL 40 MG PO SCH (08:17)
[2019-09-22] MEDS: QUETIAPINE 50 MG PO SCH ×2 (08:17→16:47)
[2019-09-22] MEDS: HYDROCHLOROTHIAZIDE 50 MG PO SCH (08:18)
--- NOTE | 2019-09-22 09:00 | NUR ---
GPS/RN-NOTES RECEIVED PATIENT LAYING IN BED CALM,NO ACUTE DISTRESS NOTED.
--- NOTE | 2019-09-22 12:08 | NUR ---
GPS/RN-NOTES PATIENT REQUESTING ATIVAN. ATIVAN 1MG P.O GIVEN PRN ORDER. WILL CONT. MONITORING FOR SAFETY AND BEHAVIOR.
[2019-09-22 16:00] VITALS: BP 106/54
[2019-09-22 20:47] VITALS: BP 110/72
--- NOTE | 2019-09-22 21:01 | NUR ---
GPS/PEDIATRICS TEACHER NOTES: PT. REQUESTED ATIVAN. ATIVAN 1MG PO PRN GIVEN ORDERED. WILL CONTINUE TO MONITOR Q15 MIN FOR SAFETY AND BEHAVIOR.
[2019-09-23] MEDS: ACETAMINOPHEN ES 500 MG TABLET PO PRN (06:29)
[2019-09-23] MEDS: LORAZEPAM 1 MG TABLET PO PRN (06:29)
[2019-09-23 08:00] VITALS: BP 117/72
--- NOTE | 2019-09-23 08:00 | NUR ---
GPS/RN-NOTES RECEIVED PATIENT LAYING IN BED WATCHING IN HIS PHONE,CALM,NO ACUTE DISTRESS NOTED.
[2019-09-23] MEDS: QUETIAPINE 50 MG PO SCH ×2 (09:05→17:59)
[2019-09-23] MEDS: BENAZEPRIL 40 MG PO SCH (09:05)
[2019-09-23] MEDS: HYDROCHLOROTHIAZIDE 50 MG PO SCH (09:05)
[2019-09-23 16:24] VITALS: BP 103/63
[2019-09-23 20:26] VITALS: BP 140/76
[2019-09-23 20:28] VITALS: BP 110/64
--- NOTE | 2019-09-24 06:09 | NUR ---
GPS RN NOTES: RECEIVED PT LAYING IN BED, AWAKE, ALERT AND ORIENTED X3. APPROPRIATE AFFECT, COOPERATIVE, PASSIVE, ISOLATIVE AND WITHDRAWN. NO S/S OF ANY DISTRESS. RESPIRATION EVEN AND UNLABORED WITH EQUAL RISE AND FALL OF THE CHEST, ON ROOM AIR. OFFERED FLUID AND SNACK TOLERATED. NO BEHAVIORAL ISSUES. SAFETY AND FALL PRECAUTION OBSERVED, CALL PAYNE WITHIN REACH. Q15 MINUTES OBSERVATION CONTINUED. WILL CONTINUE TO MONITOR PT FOR MOOD, SAFETY AND BEHAVIOR.
[2019-09-24 08:00] VITALS: BP 121/74
[2019-09-24] MEDS: QUETIAPINE 50 MG PO SCH ×2 (09:17→17:29)
[2019-09-24] MEDS: HYDROCHLOROTHIAZIDE 50 MG PO SCH (09:17)
--- NOTE | 2019-09-24 09:20 | NUR ---
given ativan per pt. request.
[2019-09-24] MEDS: LORAZEPAM 1 MG TABLET PO PRN (09:23)
[2019-09-24] MEDS: BENAZEPRIL 40 MG PO SCH (11:00)
[2019-09-24 16:00] VITALS: BP 101/62
--- NOTE | 2019-09-24 16:11 | NUR ---
ISOLATIVE,AND COOPERATIVE.NO DISTRESS.
[2019-09-24] MEDS: ACETAMINOPHEN ES 500 MG TABLET PO PRN (18:27)
--- NOTE | 2019-09-24 18:27 | NUR ---
medicated for headache with es tylenol.
[2019-09-24 20:00] VITALS: BP 115/75
[2019-09-25 08:00] VITALS: BP 119/76
[2019-09-25] MEDS: QUETIAPINE 50 MG PO SCH ×2 (08:13→17:14)
[2019-09-25] MEDS: BENAZEPRIL 40 MG PO SCH (08:13)
[2019-09-25] MEDS: HYDROCHLOROTHIAZIDE 50 MG PO SCH (08:13)
[2019-09-25] MEDS: LORAZEPAM 1 MG TABLET PO PRN ×2 (13:56→20:33)
[2019-09-25] MEDS: ACETAMINOPHEN ES 500 MG TABLET PO PRN (13:57)
[2019-09-25 16:00] VITALS: BP 129/74
[2019-09-25 20:33] VITALS: BP 123/81
--- NOTE | 2019-09-26 05:16 | NUR ---
RN Note: Refused skin assessment.
[2019-09-26 08:00] VITALS: BP 125/77
[2019-09-26] MEDS: HYDROCHLOROTHIAZIDE 50 MG PO SCH (08:59)
[2019-09-26] MEDS: QUETIAPINE 50 MG PO SCH ×2 (08:59→17:21)
[2019-09-26] MEDS: BENAZEPRIL 40 MG PO SCH (09:00)
[2019-09-26] MEDS: LORAZEPAM 1 MG TABLET PO PRN ×2 (12:30→20:21)
--- NOTE | 2019-09-26 12:30 | NUR ---
RN NOTE:PATIENT C/O ANXIETY MEDICATED WITH ATIVAN 1MG PO WILL CONTINUE TO MONITOR .
[2019-09-26 16:00] VITALS: BP 132/58
--- NOTE | 2019-09-26 19:30 | NUR ---
GPS-RN OPENING NOTE: PATIENT IN HIS ROOM, ALERT AND ORIENTED X3, PATIENT REMAINS ISOLATIVE, WITHDRAWN, BLUNTED EFFECT, VERY LIMITED SOCIAL INTERACTIONS, DENIES SI/HI/AVH AT THIS TIME. POOR EYE CONTACT, VERBALIZATION OF FEELINGS ENCOURAGED. NO AGITATION NOTED. SAFETY PRECAUTIONS IMPLEMENTED. WILL CONTINUE TO MONITOR Q15 MIN ROUNDS FOR SAFETY AND BEHAVIOR.
--- NOTE | 2019-09-26 20:24 | NUR ---
GPS-RN NOTE: PATIENT C/O INCREASED ANXIETY. PT REQUESTING ATIVAN. ADMINISTERED ATIVAN 1MG PO ORDERED. WILL CONTINUE TO MONITOR FOR PT'S SAFETY.
[2019-09-26 20:44] VITALS: BP 113/66
[2019-09-27 08:00] VITALS: BP 127/77
[2019-09-27] MEDS: BENAZEPRIL 40 MG PO SCH (08:04)
[2019-09-27] MEDS: HYDROCHLOROTHIAZIDE 50 MG PO SCH (08:05)
[2019-09-27] MEDS: QUETIAPINE 50 MG PO SCH ×2 (08:05→16:32)
--- NOTE | 2019-09-27 08:10 | NUR ---
RN OPENING NOTE: REPORT RECEIVED, ASSESSMENT COMPLETE. RECEIVED PT LYING IN BED. NO ACUTE DISTRESS NOTED. VSS, AFEBRILE. NO S/SX OF ADVERSE RXN TO MEDICATION NOTED. PT A+OX3, ABLE TO MAKE NEEDS KNOWN. COMPLIANT WITH MEDICATION ADMINISTRATION AND PLAN OF CARE. PT DENIES SI/HI/AH/VH AT PRESENT TIME. WILL CONT TO MONITOR PT FOR SAFETY, BEHAVIOR AND ADVERSE RXN PER GPS PROTOCOL.
[2019-09-27] MEDS: LORAZEPAM 1 MG TABLET PO PRN ×2 (10:14→20:46)
--- NOTE | 2019-09-27 10:14 | NUR ---
RN NOTE: ANXIETY PT EXPRESSING INCREASED ANXIETY AND RESTLESSNESS. REQUESTING ATIVAN PRN. ATIVAN 1MG PO PRN ADMINISTERED.
[2019-09-27 16:00] VITALS: BP 128/78
[2019-09-27] MEDS: ACETAMINOPHEN ES 500 MG TABLET PO PRN (16:33)
--- NOTE | 2019-09-27 19:20 | NUR ---
RN NOTES RECEIVED PATIENT LYING IN BED. ALERT AND ORIENTED X 4. WITH NO ACUTE DISTRESS NOTED AND NO SIGNS OF RESPIRATORY DISTRESS WITH EVEN NON-LABORED BREATHING. PATIENT DENIES SI/HI/AH/VH AT PRESENT TIME. SAFETY PRECAUTIONS IMPLEMENTED AND WILL CONTINUE TO MONITOR PATIENT FOR SAFETY, BEHAVIOR AND PER GPS PROTOCOL.
[2019-09-27 20:14] VITALS: BP 108/61
--- NOTE | 2019-09-27 20:46 | NUR ---
RN NOTES PATIENT STATING AN INCREASE OF ANXIETY AND REQUESTING ATIVAN. ADMINISTERED PRN ATIVAN 1mg PO, VITAL SIGNS WITHIN NORMAL LIMITS. WILL CONTINUE TO MONITOR PATIENT.
[2019-09-28 08:00] VITALS: BP 116/76
[2019-09-28] MEDS: QUETIAPINE 50 MG PO SCH (08:33)
[2019-09-28] MEDS: BENAZEPRIL 40 MG PO SCH (08:33)
[2019-09-28] MEDS: HYDROCHLOROTHIAZIDE 50 MG PO SCH (08:33)
[2019-09-28] MEDS: LORAZEPAM 1 MG TABLET PO PRN (08:43)
--- NOTE | 2019-09-28 08:43 | NUR ---
GPS/RN-NOTES PATIENT REQUESTING FOR ATIVAN. STATED" I'M A BIT ANXIOUS GOING HOME". ATIVAN 1MG P.O MG GIVEN PRN ORDER. WILL CONT. MONITORING FOR SAFETY AND BEHAVIOR.
--- NOTE | 2019-09-28 08:45 | NUR ---
RN-CO: Patient is alert and oriented in 4 spheres. Able to make needs known and self care. Denied AH/VH. Denied suicidal and homicidal ideation. No acute distress noted. Dr Cates ordered to discharge patient today noted and carried out. All belongings and valuables with the patient. ( He is a clinical trial patient of Dr Cates.)
--- NOTE | 2019-09-28 09:13 | NUR ---
RN-CO: Patient was picked up by Dr Cates's staff "Nuria". He was instructed to see Dr Cates in his office for prescriptions.
[2019-10-03] MEDS ORDERED: LORAZEPAM 1 MG TABLET PO PRN (12:00)
[2019-10-10] MEDS ORDERED: LORAZEPAM 1 MG TABLET PO PRN (12:00)
== END 2019-09-28 09:16 | disposition home or self-care (01) | DRG 951 ==
LOC: UNDOADMIN 10:59 → MED 10:59 → MEDOV2 08-23 06:27 → GPS 08-23 08:43 → MEDOV2 08-23 10:00 → GPS 08-24 13:51 → MEDOV2 08-25 10:18
PROVIDERS: ADMIT Psychiatry & Neurology Psychiatry; ATTEND Psychiatry & Neurology Psychiatry
DX: Z00.6 Encounter for examination for normal comparison and control in clinical research program (principal); F20.0 Paranoid schizophrenia; I10 Essential (primary) hypertension; F17.210 Nicotine dependence, cigarettes, uncomplicated; F32.9 Major depressive disorder, single episode, unspecified; G47.10 Hypersomnia, unspecified
CPT/HCPCS: G0378; Q0163

== ENCOUNTER 2020-07-06 08:59 | Inpatient (IN) | payer OTHER ==
[~2020-07-06] VITALS: Ht 170.2 cm; Wt 72.6 kg
[~2020-07-06 08:59] MED LIST: BENA40TA8 PO; EMTR1TAB18 PO; FLUO20CA42 PO; HYDR50TA4 PO; HYDR50TA61 PO; QUET150T2 PO
--- NOTE | 2020-07-06 13:45 | NUR ---
FREIGHT SORTER NOTE- PT ADMITTED VOL STATUS TO UNIT FOR PARANOIA, SCHIZOPHRENIA AND +AH. PT IS IN VOL STATUS FOR DRUG TRIAL W DR PERALES. ON FACE TO FACE ASSESSMENT, HE IS ALERT ORIENTED TO PERSON PLACE TIME PURPOSE . VS- 145/78, HR- 97, RR- 20, T- 98.4 SATS 97% RA. PT SKIN INTACT, PT STATES HE HAS +AH (NOISES VOICES) DENIES ALL ELSE. PT A BIT GUARDED, WITHDRAWN, FAIR EYE CONTACT, LIMITED INTERACTION AND THIS IS ONLY WHEN STAFF INITIATES. PT HAS PMHX- HTN AND HIV. DR DICKERSON OF ADMISSION,UNIT ORIENTATION COMPLETED. PT NEEDS ATTENDED. Addendum: 07/06/20 at 1814 by KAMILA LARA RN ELADIO NOTE- PAST MED HX NOT CORRECT. ONLY HTN. NO HIV HX.
[2020-07-06] MEDS ORDERED: MAGNESIUM HYDROXIDE 30 ML UDC PO PRN (14:30)
[2020-07-06] MEDS ORDERED: ACETAMINOPHEN ES 500 MG TABLET PO PRN (14:30)
[2020-07-06] MEDS ORDERED: IBUPROFEN 200 MG TABLET PO PRN (14:30)
[2020-07-06] MEDS ORDERED: MAG HYDROX/AL HYDROX/SIMETH 30 ML UDC PO PRN (14:30)
[2020-07-06] MEDS ORDERED: LORAZEPAM 1 MG TABLET FOR AGITATION/ANXIETY/HOSTILITY PO PRN (14:30)
[2020-07-06 14:33] VITALS: BP 145/78
[2020-07-06 16:00] VITALS: BP 145/78
[2020-07-06 20:10] VITALS: BP 132/79
[2020-07-06 20:39] VITALS: BP 132/79
--- NOTE | 2020-07-06 20:40 | NUR ---
RN OPENING NOTE: RECEIVED PATIENT RESTING IN CHAIR, AWAKE, A & O X 3. NO S/SX OF ACUTE RESPIRATORY DISTRESS NOTE. COOPERATIVE, CALM AT THIS TIME. ANXIOUS, RESTLESS AT TIMES & ABLE TO VERBALIZE HIS NEEDS. DENIES SI/HI AT THIS TIME. AMBULATORY & STEADY. SNACK OFFERED & TOLERATED WELL. SAFETY PRECAUTIONS IN PLACE. BED IN LOW LOCKED POSITION. WILL CONTINUE TO MONITOR Q15MIN FOR SAFETY AND BEHAVIOR.
--- NOTE | 2020-07-06 21:45 | NUR ---
RN NOTE PATIENT WENT FOR SMOKE BREAK & CAME BACK. WILL CONTINUE TO MONITOR.
--- NOTE | 2020-07-06 21:50 | NUR ---
GPS RN NOTE, SHIRA HENDRICKS INFORMED ME THAT THE SEROQUEL SCHEDULED AT 2200 WAS NOT AVAILABLE. PATIENT STATED, " MY HOME MEDS WERE GIVEN TO THE PHARMACY DOWN STAIRS UPON ADMISSION ". DR. PERALES NOTIFIED AND ADVISED THAT PATIENT HOME DOSE OF SEROQUEL IS NOT AVAILABLE. DR PERALES AWARE AND ORDERED TO GIVE AMBIEN 10 MG PO HS PRN. ALL ORDERS NOTED AND CARRIED OUT. WILL CONTINUE TO MONITOR THIS PATIENT WITH THE HELP OF STAFF.
[2020-07-06] MEDS ORDERED: ZOLPIDEM TARTRATE 10 MG TABLET PO PRN (22:00)
[2020-07-06] MEDS ORDERED: SEROQUEL 50 MG PO SCH (22:00)
--- NOTE | 2020-07-06 22:01 | NUR ---
RN NOTE: SEROQUEL NOT GIVEN SEROQUEL SCHEDULED AT 2200 WAS NOT AVAILABLE, " PER PATIENT, HIS HOME MEDS WERE GIVEN TO THE PHARMACY DOWN STAIRS UPON ADMISSION." DR. PERALES NOTIFIED BY CHARGE NURSE, DR. PERALES ADVISED TO GIVE AMBIEN PRN IF SEROQUEL IS NOT AVAILABLE TONIGHT. INFORMED TO THE PATIENT & PT. AGREED WITH THE PLAN OF CARE.
--- NOTE | 2020-07-06 23:02 | NUR ---
RN NOTE AMBIEN 10 MG OFFERED TO THE PATIENT BUT PATIENT REFUSED TO TAKE AMBIEN AT THIS TIME & STATED," I AM OK RIGHT NOW, I WILL LET YOU KNOW IF I NEED IT." WILL CONTINUE TO MONITOR THE PATIENT.
--- NOTE | 2020-07-07 06:28 | NUR ---
RN CLOSING NOTE PATIENT SLEPT WELL AT NIGHT. NO BEHAVIOR EPISODE NOTED. CAM Addendum: 07/07/20 at 0629 by SHIRA HERNANDEZ RN ERROR - RN CLOSING NOTE
--- NOTE | 2020-07-07 06:29 | NUR ---
RN CLOSING NOTE PATIENT SLEPT WELL AT NIGHT. NO SLEEPING MEDICINE WAS REQUESTED BY THE PATIENT. NO BEHAVIOR EPISODE NOTED. CALM & COOPERATIVE. WILL ENDORSE TO AM RN FOR CONTINUITY OF CARE.
[2020-07-07 08:00] VITALS: BP 119/71
[2020-07-07] MEDS: BENAZEPRIL 40 MG PO SCH (08:51)
[2020-07-07] MEDS: HYDROCHLOROTHIAZIDE 50 MG PO SCH (08:52)
[2020-07-07 16:00] VITALS: BP 122/66
--- NOTE | 2020-07-07 19:26 | NUR ---
RN OPENING NOTE: RECEIVED PATIENT RESTING IN HIS BED, AWAKE, A & O X 4. NO BEHAVIOR EPISODES INFORMED BY AM RN DURING AM SHIFT. NO S/SX OF ACUTE RESPIRATORY DISTRESS NOTE. COOPERATIVE, CALM AT THIS TIME. ABLE TO VERBALIZE HIS NEEDS. DENIES SI/HI AT THIS TIME. AMBULATORY & STEADY. SNACK OFFERED BUT REFUSED AT THIS TIME. SAFETY PRECAUTIONS IN PLACE. BED IN LOW LOCKED POSITION. WILL CONTINUE TO MONITOR Q15MIN FOR SAFETY AND BEHAVIOR.
[2020-07-07 20:03] VITALS: BP 126/84
[2020-07-07 20:07] VITALS: BP 126/84
--- NOTE | 2020-07-07 21:25 | NUR ---
RN NOTE PATIENT WENT FOR SMOKE BREAK & CAME BACK. WILL CONTINUE TO MONITOR.
[2020-07-07] MEDS: SEROQUEL 50 MG PO SCH (22:13)
[2020-07-08 08:00] VITALS: BP 121/58
[2020-07-08] MEDS: HYDROCHLOROTHIAZIDE 50 MG PO SCH (08:39)
[2020-07-08] MEDS: BENAZEPRIL 40 MG PO SCH (08:39)
[2020-07-08 16:00] VITALS: BP 109/75
[2020-07-08 20:07] VITALS: BP 112/76
[2020-07-08] MEDS: SEROQUEL 50 MG PO SCH (21:36)
[2020-07-09 08:00] VITALS: BP 109/74
[2020-07-09] MEDS: BENAZEPRIL 40 MG PO SCH ×2 (08:10→08:48)
[2020-07-09] MEDS: HYDROCHLOROTHIAZIDE 50 MG PO SCH ×2 (08:10→08:48)
[2020-07-09 16:00] VITALS: BP 116/77
--- NOTE | 2020-07-09 18:42 | NUR ---
GPS RN NOTES PATIENT WATCHING IPAD AT ACTIVITY ROOM. CALM DURING THE DAY, MED COMPLIANT.
--- NOTE | 2020-07-09 20:00 | NUR ---
GPS RN NOTES: RECEIVED PATIENT LAYING ON BED, AWAKE, A/O X3, WELL GROOMED, BLUNTED AFFECT, APPEARS DEPRESSED, CALM AND COOPERATIVE, WITHDRAWN, PASSIVE, ISOLATIVE, NOT INTERACTING WITH PEERS. PT. DENIES SI/HI AT THIS TIME. NO S/S OF DISTRESS. NO BEHAVIORAL ISSUES. ABLE TO FOLLOW COMMAND. WENT OUT FOR A SMOKE AT 1940 AND CAME BACK AT 1956. WILL CONTINUE TO MONITOR FOR MOOD AND BEHAVIOR.
[2020-07-09 20:40] VITALS: BP 128/72
[2020-07-10 08:00] VITALS: BP 152/91
[2020-07-10] MEDS: BENAZEPRIL 40 MG PO SCH (09:43)
[2020-07-10] MEDS: HYDROCHLOROTHIAZIDE 50 MG PO SCH (09:43)
[2020-07-10 16:00] VITALS: BP 125/95
[2020-07-10] MEDS ORDERED: SEROQUEL 50 MG PO SCH (22:00)
--- NOTE | 2020-07-10 23:10 | NUR ---
GPS RN NOTE PT LEFT THE [facility] UNIT AMA. CHARGE NURSE ALREADY EXPLAINED TO THE PT ABOUT HIS TX AND ALSO COMMUNICATED WITH DR PERALES. PT SIGNED THE BELONGING SHEET AND AMA FORM. ALL THE BELONGINGS GIVEN BACK TO HIM. PT VSS, NO DISTRESS OR DISCOMORT NOTED, DENIES PAIN. LEFT THE UNIT BY AMBULATING WITH STEADY GAIT.
--- NOTE | 2020-07-10 23:21 | NUR ---
23:00 Patient came to the nursing station and asked permission to go home for 30 minutes , stated"my car was towed and I have the de leon ,I will come back after 30 minutes ."Dr Cates was notified of the patient request .Dr Cates talked to the patient on the phone but the patient insisted to go home.DR Cates gave an order to discharge patient AMA.Explained to the patient the risk of discharging AMA,patient verbalized understanding and signed the discharge AMA form.Patient denies SI.HI and VH.Patient contracted for safety .Patient took all his personal belongings with him.No s/s of acute distress noted.Patient left the unit alert,orient x 4 and ambulatory at 23:10 with the accompaniment of the staff going down to the lobby.
[2020-07-13] MEDS ORDERED: ZOLPIDEM TARTRATE 10 MG TABLET PO PRN (12:00)
[2020-07-13] MEDS ORDERED: LORAZEPAM 1 MG TABLET FOR AGITATION/ANXIETY/HOSTILITY PO PRN (12:00)
[2020-07-14] MEDS ORDERED: [UNRECOGNIZED DRUG - OTHER] PO SCH (21:00)
[2020-07-14] MEDS ORDERED: [UNRECOGNIZED DRUG - OTHER] PO SCH (21:00)
[2020-07-14] MEDS ORDERED: [UNRECOGNIZED DRUG - OTHER] PO SCH (21:00)
[2020-07-20] MEDS ORDERED: LORAZEPAM 1 MG TABLET FOR AGITATION/ANXIETY/HOSTILITY PO PRN (12:00)
[2020-07-20] MEDS ORDERED: ZOLPIDEM TARTRATE 10 MG TABLET PO PRN (12:00)
[2020-07-27] MEDS ORDERED: ZOLPIDEM TARTRATE 10 MG TABLET PO PRN (12:00)
[2020-07-27] MEDS ORDERED: LORAZEPAM 1 MG TABLET FOR AGITATION/ANXIETY/HOSTILITY PO PRN (12:00)
[2020-08-03] MEDS ORDERED: ZOLPIDEM TARTRATE 10 MG TABLET PO PRN (12:00)
[2020-08-03] MEDS ORDERED: LORAZEPAM 1 MG TABLET FOR AGITATION/ANXIETY/HOSTILITY PO PRN (12:00)
[2020-08-10] MEDS ORDERED: LORAZEPAM 1 MG TABLET FOR AGITATN/ANXIETY/HOSTILITY PO PRN (12:00)
[2020-08-10] MEDS ORDERED: ZOLPIDEM TARTRATE 10 MG TABLET PO PRN (12:00)
== END 2020-07-10 23:10 | disposition left against medical advice (07) | DRG 951 ==
LOC: GPS 13:03
PROVIDERS: ADMIT Psychiatry & Neurology Psychiatry; ATTEND Psychiatry & Neurology Psychiatry
DX: Z00.6 Encounter for examination for normal comparison and control in clinical research program (principal); F20.0 Paranoid schizophrenia; I10 Essential (primary) hypertension; Z79.899 Other long term (current) drug therapy; Z81.8 Family history of other mental and behavioral disorders; Z80.1 Family history of malignant neoplasm of trachea, bronchus and lung

== ENCOUNTER 2021-11-17 09:01 | Emergency (ER) | payer MEDICARE, OTHER ==
[~2021-11-17] VITALS: Ht 170.2 cm; Wt 66.7 kg
[~2021-11-17 09:01] MED LIST changes: -EMTR1TAB18 PO
--- NOTE | 2021-11-17 09:21 | NUR ---
TO ER BED 18, BIBS FOR VOLUNTARY ADMISSION TO [facility], FEELING DEPRESSED, DENIES SI/HI DENIES HALLUCINATION, AAOX3, BREATHING EVEN AND NON LABORED, AWAITING MD SALINAS
--- NOTE | 2021-11-17 09:22 | NUR ---
COVID SWAB DONE AND SENT TO LAB
[2021-11-17 09:53] LABS: BASOPHILS % (AUTO) 0.2 % (0.0-2.0); EOSINOPHILS % (AUTO) 3.2 % (0.0-6.0); HEMATOCRIT 40 % (39-51); HEMOGLOBIN 13.3 g/dL (13.5-17.5); LYMPHOCYTES # (AUTO) 1.4 K/uL (0.8-4.8); LYMPHOCYTES % (AUTO) 27.5 % (20.0-44.0); MEAN CORPUSCULAR HGB CONC 34 g/dl (31.0-36.0); MEAN CORPUSCULAR VOLUME 98 fL (80-96); MONOCYTES # (AUTO) 0.5 K/uL (0.1-1.30); MONOCYTES % (AUTO) 10.3 % (2.0-12.0); NEUTROPHILS % (AUTO) 58.8 % (43.0-81.0); PLATELET COUNT (AUTO) 223 K/uL (150-450); RED BLOOD CELL COUNT(AUTO) 4.02 MIL/uL (4.5-6.0); WHITE BLOOD COUNT (AUTO) 5.2 K/uL (4.3-11.0)
[2021-11-17 10:17] LABS: CALCIUM, SERUM 8.5 mg/dL (8.5-10.1); CARBON DIOXIDE 33 mmol/L (21-32); CHLORIDE 106 mmol/L (98-107); CREATININE 1.2 mg/dL (0.6-1.3); GLUCOSE 122 mg/dL (74-106); POTASSIUM 3.7 mmol/L (3.5-5.1); SODIUM SERUM 143 mmol/L (136-145); UREA NITROGEN, BLOOD 23 mg/dL (7-18)
[2021-11-17 10:24] LABS: ALANINE AMINOTRANSFERASE 25 U/L (12-78); ALBUMIN 3.6 g/dL (3.4-5.0); ALKALINE PHOSPHATASE 80 U/L (46-116); ASPARTATE AMINOTRANSFERASE 24 U/L (15-37); BILIRUBIN,DIRECT 0.1 mg/dL (0.0-0.2); BILIRUBIN,TOTAL 0.4 mg/dL (0.2-1.0); TOTAL PROTEIN, SERUM 7.8 g/dL (6.4-8.2)
[2021-11-17 10:28] LABS: ACETAMINOPHEN < 0 ug/ml (10-30); ALCOHOL, BLOOD < 3 mg/dL (0-0)
--- NOTE | 2021-11-17 12:42 | NUR ---
URINE COLLECTED AND SENT TO LAB
[2021-11-17 13:26] LABS: BILIRUBIN,URINE NEGATIVE (NEGATIVE); COLOR,URINE YELLOW (YELLOW); LEUKOCYTE ESTERASE ,URINE NEGATIVE (NEGATIVE); NITRITE, URINE NEGATIVE (NEGATIVE); PROTEIN,URINE NEGATIVE (NEGATIVE); UGLUCOSE NEGATIVE (NEGATIVE)
[2021-11-17 13:45] LABS: BACTERIA,URINE Rare /HPF (None Seen); RBC,URINE 0-2 /HPF (0-2); SQUAMOUS EPITHELIAL CELL,UR Rare /HPF (None Seen); WBC,URINE 0-2 /HPF (0-3)
--- NOTE | 2021-11-17 17:48 | NUR ---
CALLED [facility] PER HECTOR PT ACCEPTED BUT NO AVAILABLE BEDS CHECK AFTER 1899
--- NOTE | 2021-11-17 20:06 | NUR ---
FAXED CLINICALS AND FACESHEET TO [facility]
--- NOTE | 2021-11-17 23:52 | NUR ---
CORY FROM [facility], STILL LOOKING FOR PLACEMENT
--- NOTE | 2021-11-18 01:04 | NUR ---
PER [facility] NO BED AVAILABLE
--- NOTE | 2021-11-18 08:40 | NUR ---
CECILIA called [facility] TEL:[phone] and Libra stated bed is still pending at [facility] for this patient.
--- NOTE | 2021-11-18 09:18 | NUR ---
CALLED GOMEZ FROM [facility] AND WAS NOTIFIED THAT THERE ARE NO BEDS AVAILABLE
--- NOTE | 2021-11-18 12:09 | NUR ---
SS consult: SS Consult requested for mental health & homelessness. The pt. is a 45-year-old Black male patient who came into ED due to: history of Depression and psych placement needs. Upon SS consult, the pt. is Alert & Oriented x 4 and makes good eye contact. The pt. appears well-groomed with depressed mood & flat affect. Pt.'s speech is clear. Per pt. he wants to get his psychotropic medications readjusted as he feels the medication he is currently on (Prozac, Zyprexa) is making him have paranoid thoughts and dreams as well as causing him to experience hallucinations. Per pt., he has been diagnosed with Schizoaffective Disorder. Pt. denies current SI/ HI and denies hallucinations and states he was having auditory hallucination when he arrived. Per pt. he has a psychiatrist, Dr. Dubon who he speaks to every 3-6 months and a therapist, who he speaks to every 6 moths. SW explored pt.'s living situation. Patient states he currently resides at home[[address] [facility], [address]] alone. SW explored pt.'s mental health Hx. Patient denies ever being diagnosed with a mental illness and denies being prescribed medication for his mental health. SW provided mental health resources. SW explored pt.'s drug & ETOH use. Pt. denies drug or alcohol use. Per pt. he is ambulatory and independent with all his ADL's. SW explored pt.'s support system. Pt. states his family is and he has no one else. Plan: Pt. was referred to [facility] for voluntary psychiatric treatment as requested by patient. SW provided addiction and mental health resources and pt. accepted them. Per [facility], they are pending bed availability. ADDICTION RESOURCES For Drugs and Alcohol [facility] sober living Referrals For Rehabilitation once sober Address:[address] [place] [address] [facility] [address] [place] [address] Detox/residential [facility] Substance Abuse Helpline ([facility]) Outpatient, residential treatment, recovery support for youth/adults [facility] www.actionfamilycounseling.[employer] [facility] Teen programs for drug/alcohol education and support Erika Rivas [place]. Program for adults, sliding scale provides support and education [facility] [place] www.ethologyHungrioation.org [place]; Detox/residential treatment programs; transition to sober living [facility] www.cri-help.org [place]; Outpatient and residential treatment programs; transition to sober living [facility] TEL: [phone] [facility] Jaret Gonzalez; Outpatient education and supportive programs for teens and adults [facility] www.oasiswomensrque[facility].org [place]; Residential treatment and work program for females only [facility] www.[facility].org [place]: Outpatient/residential treatment program for teens and young adults [facility] www.[facility].org [facility] Detox, inpatient, outpatient for adults and youth [facility], [facility]. [place]; Outpatient programs and referrals to community residential programs. Alcoholics Anonymous -SFV information and meeting and scheduleswww.aa-intergroup.org Yp-Znqp-Nqvexwg https://al-anon.org/ [place] support groups for family of alcoholics. Marijuana Anonymous www.madistrict6.org -SFV listing of meetings Narcotics Anonymous www.na.org SOBER LIVING RESOURCES [facility] www.soberhousing.net A non-profit agency that provides resources to recovery and sober living homes throughout [facility] Men's Sober Living Homes: A Work in Progress, Nickie Sonja Lan[facility], [place] [facility] On License Of [facility] Women's Sober Living Homes: [facility] x [phone] My New BeginningDUDLEY [facility] Coed Sober Living Homes: [facility] Counseling--Outpatient [facility] [address], [place] [address] (Specializes in in-depth psychotherapy for emotional distress: anxiety, depression, interpersonal conflicts, life transitions, childhood abuse) [facility] [address] [place] [address] (Assist with solving problem marital difficulties, separation & divorce, aging parents, & grief, chronic & terminal illness) [facility] [address] [place] [address] (Deal with loss & grief, anxiety, marital difficulties) Homebound/Mental Health Services [address], [address] [place] [address] (Provide in-home mental services to people who are incapable of leaving their homes) [facility] for Needs of the Elderly Senior Service/Resource Center [address] [place] [address] [facility] [address] [place] [address] Mental Health Services Helen Vo [address] [place] [address] Services: Outpatient therapy for children, teens, young adults, adults, older adults, and families; Psychiatric services, medication support Psychiatric Outpatient Services [facility] Partial Hospitalization and Intensive Outpatient Program (Managed Care and [place] Only)[address] [facility]. [facility] [phone] [facility] Partial Hospitalization and Outpatient [address] [place], [place] [phone] [facility] [id number] [place], [place] [phone] [facility] Partial Hospitalization and Outpatient [id number]der[place], [phone] Crisis and Hotline Telephone Numbers 24-Hour service unless stated [place] Crisis Hotlines: [facility] Mental Health/Crisis Line........335.843.2789 Suicide Prevention Center (24 Hours).......124.978.8860 Suicide Prevention Crisis Center.......741.427.3310 (24 Hours) Assaults Against Women Hotline.........665.497.4436 (24 Hours -- [facility]) Women and Children Crisis Long Term...........321.551.7022 (24 Hours) Child Abuse Hotline............304.754.5213 [facility] Rape Treatment Center (24 Hours)..........[phone] Alcoholics Anonymous (24 Hours)..........771.729.9084 Cocaine Anonymous (24 Hours)............780.337.8034 Narcotics Anonymous (24 Hours)..........276.116.3549 Clarisa Kearns [facility] [address], [place] [address]
--- NOTE | 2021-11-18 14:05 | NUR ---
PT ACCEPTED AT [facility] UNDER THE CARE OF DR. GAMEZ. PER STIVEN, PT WILL BE PICKED UP BETWEEN 1430 - 1500. GIVEN [phone] FOR REPORT.
[2021-11-18 16:00] VITALS: BP 128/74
--- NOTE | 2021-11-18 16:00 | NUR ---
TRANSPORTED TO [facility] VIA FACILITY TRANSPORT IN STABLE CONDITION.
== END 2021-11-18 16:00 ==
LOC: ER 09:21
DX: F32.A Depression, unspecified (principal); I10 Essential (primary) hypertension; Z88.8 Allergy status to other drugs, medicaments and biological substances; Z91.018 Allergy to other foods; Z20.822 Contact with and (suspected) exposure to COVID-19; Z79.899 Other long term (current) drug therapy
CPT/HCPCS: 99285; 85025; 80048; 80076; 81001; 36415; 87426; 80143; 80320; 80307; C9803; G0480

== ENCOUNTER 2021-12-10 00:30 | Emergency (ER) | payer MEDICARE, OTHER ==
[~2021-12-10] VITALS: Ht 170.2 cm; Wt 65.8 kg
--- NOTE | 2021-12-10 00:46 | NUR ---
CALLED FOR TRIAGE NOT IN WAITING ROOM.
--- NOTE | 2021-12-10 01:26 | NUR ---
COVID SWAB DONE AND SENT TO LAB
--- NOTE | 2021-12-10 01:26 | NUR ---
URINE DONE AND SENT TO LAB
--- NOTE | 2021-12-10 01:27 | NUR ---
BIBS C/O S/I NO PLAN DENIES H/I SEEKING VOLUNTARY ADMISSION TO PSYCH FACILITY. PATIENT ALERT AND ORIENTED X3. AMBLATORY WITH NON LABORED BREATHING IN BED 18 SEEN BY AT [facility].
--- NOTE | 2021-12-10 01:29 | NUR ---
ALL BELONGINGS TAKEN AND PUT IN LOCKER. PATIENT IN GOWN.
[2021-12-10 01:44] LABS: BASOPHILS % (AUTO) 0.2 % (0.0-2.0); EOSINOPHILS % (AUTO) 2.8 % (0.0-6.0); HEMATOCRIT 41 % (39-51); LYMPHOCYTES # (AUTO) 1.9 K/uL (0.8-4.8); LYMPHOCYTES % (AUTO) 32.9 % (20.0-44.0); MEAN CORPUSCULAR HGB CONC 34 g/dl (31.0-36.0); MEAN CORPUSCULAR VOLUME 98 fL (80-96); MONOCYTES # (AUTO) 0.6 K/uL (0.1-1.30); MONOCYTES % (AUTO) 10.9 % (2.0-12.0); NEUTROPHILS # (AUTO) 3.1 K/uL (1.8-8.9); NEUTROPHILS % (AUTO) 53.2 % (43.0-81.0); PLATELET COUNT (AUTO) 223 K/uL (150-450); RED BLOOD CELL COUNT(AUTO) 4.13 MIL/uL (4.5-6.0); WHITE BLOOD COUNT (AUTO) 5.8 K/uL (4.3-11.0)
[2021-12-10 01:45] LABS: BILIRUBIN,URINE NEGATIVE (NEGATIVE); COLOR,URINE YELLOW (YELLOW); LEUKOCYTE ESTERASE ,URINE NEGATIVE (NEGATIVE); NITRITE, URINE NEGATIVE (NEGATIVE); PH,URINE 7.5 (5.0-8.0); PROTEIN,URINE NEGATIVE (NEGATIVE); UGLUCOSE NEGATIVE (NEGATIVE); UROBILINOGEN,URINE 0.2 EU/dL (0.2)
[2021-12-10 01:57] LABS: CALCIUM, SERUM 8.8 mg/dL (8.5-10.1); CARBON DIOXIDE 31 mmol/L (21-32); CHLORIDE 100 mmol/L (98-107); CREATININE 1.2 mg/dL (0.6-1.3); GLUCOSE 77 mg/dL (74-106); POTASSIUM 3.7 mmol/L (3.5-5.1); SODIUM SERUM 139 mmol/L (136-145); UREA NITROGEN, BLOOD 19 mg/dL (7-18)
[2021-12-10 02:00] LABS: ALANINE AMINOTRANSFERASE 25 U/L (12-78); ALBUMIN 3.5 g/dL (3.4-5.0); ALKALINE PHOSPHATASE 71 U/L (46-116); ASPARTATE AMINOTRANSFERASE 19 U/L (15-37); BILIRUBIN,DIRECT 0.1 mg/dL (0.0-0.2); BILIRUBIN,TOTAL 0.3 mg/dL (0.2-1.0)
[2021-12-10 02:01] LABS: ACETAMINOPHEN < 2 ug/ml (10-30); ALCOHOL, BLOOD < 3 mg/dL (0-0)
--- NOTE | 2021-12-10 06:29 | NUR ---
faxed facesheet and clinicals to [facility]
[2021-12-10 07:59] VITALS: BP 149/91
--- NOTE | 2021-12-10 09:54 | NUR ---
CECILIA called [facility] TEL:[phone] fax:[phone] for update. Per Intake, they have received the clinicals and are waiting for feedback from nursing sepervisor.
--- NOTE | 2021-12-10 10:13 | NUR ---
SO DAVIS JONES CALLED WITH PT ACCEPTANCE INFO UNDER THE CARE OF DR. CESAR NUMBER FOR REPORT [phone] ETA [phone]
--- NOTE | 2021-12-10 10:22 | NUR ---
ATTEMPTED TO CALL FACILITY TO GIVE REPORT, NO ANSWER
--- NOTE | 2021-12-10 11:37 | NUR ---
SS consult requested for possible homelessness and suicidal ideation. Pt. is a 46-year-old male who was admitted to [facility] on 12/10/2021 due to auditory hallucinations and suicidal ideation. Upon SS consult, pt. is alert and oriented x4. Pt. presents with a dysphoric mood and congruent affect. Pt. appears well-kempt and provides appropriate eye contact. Pt. was cooperative throughout the interview. planner chief explored the pt.s living situation. Pt. stated he lives alone at [address] [place] [id number]. planner chief explored pt.s substance use history. Pt. denied substance use history. Per EMR, pt. tested positive for cocaine. planner chief offered substance use resources. planner chief explored pt.s psychiatric history. Pt. Stated he is diagnosed with schizoaffective disorder. Pt. stated that he had not taken his medication in a few weeks and started to hear voices. Pt. stated he takes Zyprexa, Prozac and medication for hypertension. Pt. Stated he is not currently having auditory or visual hallucinations. Pt. denies current suicidal/homicidal ideation. Plan: Upon Discharge, pt. stated he wanted to be discharged to [facility] [[address] [place] [address]].
== END 2021-12-10 10:31 ==
LOC: ER 00:33
DX: R45.851 Suicidal ideations (principal); Z91.14 Patient's other noncompliance with medication regimen; F31.9 Bipolar disorder, unspecified; F20.9 Schizophrenia, unspecified; I10 Essential (primary) hypertension; Z88.8 Allergy status to other drugs, medicaments and biological substances; Z91.018 Allergy to other foods; Z79.899 Other long term (current) drug therapy; Z20.822 Contact with and (suspected) exposure to COVID-19
CPT/HCPCS: 99285; 85025; 80048; 80076; 81003; 36415; 87426; 80143; 80320; 80307; C9803; G0480